=== PATIENT | male | born 1930 | race African-American/Black ===

== ENCOUNTER 2016-10-27 11:12 | Inpatient (IN) | payer MEDICARE ==
[2016-10-27] MEDS ORDERED: ALBUTEROL NEBULIZED 7.5 MG, IPRATROPIUM NEBULIZED 0.5 MG, SODIUM CHLORIDE 0.9% NEBULIZ ... INHALATION ONE ×3 (11:56)
--- NOTE | 2016-10-27 12:18 | ED ---
General Adult HPI - General Chief complaint: Psychiatric Symptoms Stated complaint: PAIN, MENTAL HEALTH Time Seen by Provider: 10/27/16 11:37 Source: patient, RN notes reviewed Mode of arrival: wheelchair Limitations: no limitations - History of Present Illness Initial comments: 86-year-old male presents to the emergency department with a chief complaint of shortness of breath. Patient states he's been short of breath the last few days. Patient states she has a continued cough with sputum production except is able to get out. Patient states he feels a tightness. Patient denies any nausea vomiting with this or fever or chills. Patient states that also been unable to sleep last 5 days. Patient states he does not know why he just cannot sleep. Patient does admit to a history of COPD states he was nonsmoker. Patient states she was concerned due to the continued shortness of breath cough is seen. When talking to the patient's guardian the patient's guardian states that he has been on for about 5 days and she has noticed that his behavior has changed. He has been diagnosed with dementia. Patient has been on Levaquin patiently for the shortness of breath. He denies any suicidal or homicidal ideation at this time. She states that he has a swelling in the legs and she believes this is worsening due to the fact these are elevated and is not going to bed at night. - Related Data Home Medications Medication Instructions Recorded Confirmed Brimonidine Tartrate/Timolol 1 drop BOTH EYES Q12HR 10/08/15 10/27/16 [Combigan 0.2%/0.5% Oph Soln] Diltiazem HCl [Cardizem] 120 mg PO DAILY 10/08/15 10/27/16 Finasteride [Proscar] 5 mg PO DAILY 10/08/15 10/27/16 Furosemide [Lasix] 40 mg PO BID 10/08/15 10/27/16 Tamsulosin [Flomax] 0.4 mg PO DAILY 10/08/15 10/27/16 Travoprost [Travatan Z 0.004%] 1 drop BOTH EYES HS 10/08/15 10/27/16 Vitamin B Complex 1 cap PO DAILY 10/08/15 10/27/16 Albuterol Inhaler [Ventolin Hfa 1 puff INHALATION RT-Q4H PRN 10/09/15 10/27/16 Inhaler] Albuterol Nebulized [Ventolin 2.5 mg INHALATION RT-QID 10/09/15 10/27/16 Nebulized] Fluticasone/Salmeterol [Advair 2 puff INHALATION RT-BID 03/05/16 10/27/16 250-50 Diskus] Ferrous Sulfate [Feosol] 325 mg PO DAILY 04/23/16 10/27/16 predniSONE 20 mg PO DAILY 04/23/16 10/27/16 Docusate [Colace] 100 mg PO BID PRN 05/26/16 10/27/16 Dorzolamide HCl [Trusopt 2%] 1 drop BOTH EYES BID 05/26/16 10/27/16 Lisinopril [Prinivil] 5 mg PO HS 05/26/16 10/27/16 Omeprazole 20 mg PO DAILY PRN 05/26/16 10/27/16 Potassium Chloride [K-Tab ER] 10 meq PO BID 05/26/16 10/27/16 Simvastatin [Zocor] 20 mg PO HS 05/26/16 10/27/16 Pilocarpine HCl [Isopto Carpine 4%] 1 drop BOTH EYES QID 10/27/16 10/27/16 Allergies Allergy/AdvReac Type Severity Reaction Status Date / Time hydrocodone bitartrate AdvReac DELERIUM Verified 10/27/16 13:02 [From [place]] methylprednisolone sodium AdvReac delerium Verified 10/27/16 13:02 succinate [From Solu-Medrol] Review of Systems ROS Statement: Those systems with pertinent positive or pertinent negative responses have been documented in the HPI. ROS Other: All systems not noted in ROS Statement are negative. Past Medical History Past Medical History: Blood Disorder, COPD, Eye Disorder, Hyperlipidemia, Hypertension, Memory Impairment, Renal Disease, Skin Disorder, Vascular Disorder Additional Past Medical History / Comment(s): GLAUCOMA. KELOIDS. ANEMIA. Finished [facility] on 02-27-16. Kidney disease but does not require dialysis. Black stools. History of Any Multi-Drug Resistant Organisms: None Reported Past Surgical History: Joint Replacement, Orthopedic Surgery Additional Past Surgical History / Comment(s): TOTAL RT HIP, LT KNEE. Past Anesthesia/Blood Transfusion Reactions: No Reported Reaction Past Psychological History: Anxiety, Depression Smoking Status: Never smoker Past Alcohol Use History: None Reported Past Drug Use History: None Reported - Past Family History Mother Family Medical History: No Reported History Father Additional Family Medical History / Comment(s): Keloids General Exam - General Exam Comments Initial Comments: General: The patient is awake and alert, in no distress, and does not appear acutely ill. Eye: Pupils are equal, round and reactive to light, extra-ocular movements are intact; there is normal conjunctiva bilaterally. No signs of icterus. Ears, nose, mouth and throat: There are moist mucous membranes and no oral lesions. Neck: The neck is supple, there is no tenderness. Cardiovascular: There is a regular rate and rhythm. No murmur, rub or gallop is appreciated. Respiratory: Lungs are clear to auscultation, respirations are non-labored, breath sounds are equal. Diffuse wheeze,no stridor, rales, or rhonchi. Gastrointestinal: Soft, non-distended, non-tender abdomen without masses or organomegaly noted. There is no rebound or guarding present. No CVA tenderness. Bowel sounds are unremarkable. Back: There is no tenderness to palpation in the midline. There is no obvious deformity. No rashes noted. Musculoskeletal: Normal ROM, no tenderness, There is no pedal edema. Swelling to bilateral lower extremities Sensation intact. Pulses equal bilaterally 2+. Neurological: CN II-XII intact, There are no obvious motor or sensory deficits. Coordination appears grossly intact. Speech is normal. Skin: Skin is warm and dry and no rashes or lesions are noted. Psychiatric: Cooperative, appropriate mood & affect, normal judgment. Limitations: no limitations Course Vital Signs 10/27/16 10/27/16 10/27/16 11:34 12:38 13:15 Temperature 97.6 F Pulse Rate 90 75 84 Respiratory 18 Rate Blood Pressure 175/98 O2 Sat by Pulse 97 Oximetry - Reevaluation(s) Reevaluation #1: 10/27/16 13:52 Patient was reassessed after the breathing treatment patient continues to have diffuse expiratory wheeze and is still only 91 on room air. EKG Findings - EKG Comments: EKG Findings:: normal sinus rhythm 81 bpm, normal axis, no atopy, no S-T depressions or elevations, right bundle-branch block Medical Decision Making - Medical Decision Making 86-year-old male presents with diffuse wheezes throughout the lung examination was shortness of breath and cough. At this time we do not have the injury patient continues to have shortness of breath patient continued to have wheezing and is only 91 on room air. Patient's EKG other laboratory is reviewed. Patient's x-ray does show a possible pneumonia patient is currently being treated with Levaquin out patiently any continues at the wheezing and difficulty breathing. States not given due to patient's ALLERGY. This time we will admit the patient for failed outpatient treatment for pneumonia for COPD exacerbation. Family is concerned about psychiatric care we will also consult psychiatry for the patient. This is discussed with the patient's admitting doctor who does agree to the admission. At this time on the patient and family' s questions have been answered. They're given the plan. - Lab Data Result diagrams: 10/27/16 12:25 10/27/16 12:25 Lab Results 10/27/16 10/27/16 10/27/16 Range/Units 12:25 12:25 12:25 WBC 13.7 H (3.8-10.6) k/uL RBC 3.62 L (4.30-5.90) m/uL Hgb 11.5 L (13.0-17.5) gm/dL Hct 36.2 L (39.0-53.0) % MCV 99.8 (80.0-100.0) fL MCH 31.7 (25.0-35.0) pg MCHC 31.8 (31.0-37.0) g/dL RDW 15.3 (11.5-15.5) % Plt Count 260 (150-450) k/uL Neutrophils % 86 % Lymphocytes % 8 % Monocytes % 5 % Eosinophils % 0 % Basophils % 0 % Neutrophils # 11.8 H (1.3-7.7) k/uL Lymphocytes # 1.1 (1.0-4.8) k/uL Monocytes # 0.7 (0-1.0) k/uL Eosinophils # 0.0 (0-0.7) k/uL Basophils # 0.0 (0-0.2) k/uL Macrocytosis Slight PT (9.0-12.0) sec INR (<1.1) APTT (22.0-30.0) sec Sodium 145 (137-145) mmol/L Potassium 4.5 (3.5-5.1) mmol/L Chloride 105 (98-107) mmol/L Carbon Dioxide 28 (22-30) mmol/L Anion Gap 12 mmol/L BUN 40 H (9-20) mg/dL Creatinine 1.83 H (0.66-1.25) mg/dL Est GFR (MDRD) Af Amer 43 (>60 ml/min/1.73 sqM) Est GFR (MDRD) Non-Af 35 (>60 ml/min/1.73 sqM) Glucose 111 H (74-99) mg/dL Calcium 9.9 (8.4-10.2) mg/dL Magnesium 2.3 (1.6-2.3) mg/dL Total Bilirubin 0.8 (0.2-1.3) mg/dL AST 26 (17-59) U/L ALT 19 L (21-72) U/L Alkaline Phosphatase 44 (38-126) U/L Total Creatine Kinase 52 L (55-170) U/L CK-MB (CK-2) 2.5 H* (0.0-2.4) ng/mL CK-MB (CK-2) Rel Index 4.8 Troponin I 0.033 (0.000-0.034) ng/mL NT-Pro-B Natriuret Pep pg/mL Total Protein 7.0 (6.3-8.2) g/dL Albumin 4.2 (3.5-5.0) g/dL Serum Alcohol <10 mg/dL 10/27/16 10/27/16 Range/Units 12:25 12:25 WBC (3.8-10.6) k/uL RBC (4.30-5.90) m/uL Hgb (13.0-17.5) gm/dL Hct (39.0-53.0) % MCV (80.0-100.0) fL MCH (25.0-35.0) pg MCHC (31.0-37.0) g/dL RDW (11.5-15.5) % Plt Count (150-450) k/uL Neutrophils % % Lymphocytes % % Monocytes % % Eosinophils % % Basophils % % Neutrophils # (1.3-7.7) k/uL Lymphocytes # (1.0-4.8) k/uL Monocytes # (0-1.0) k/uL Eosinophils # (0-0.7) k/uL Basophils # (0-0.2) k/uL Macrocytosis PT 11.0 (9.0-12.0) sec INR 1.1 (<1.1) APTT 20.7 L (22.0-30.0) sec Sodium (137-145) mmol/L Potassium (3.5-5.1) mmol/L Chloride (98-107) mmol/L Carbon Dioxide (22-30) mmol/L Anion Gap mmol/L BUN (9-20) mg/dL Creatinine (0.66-1.25) mg/dL Est GFR (MDRD) Af Amer (>60 ml/min/1.73 sqM) Est GFR (MDRD) Non-Af (>60 ml/min/1.73 sqM) Glucose (74-99) mg/dL Calcium (8.4-10.2) mg/dL Magnesium (1.6-2.3) mg/dL Total Bilirubin (0.2-1.3) mg/dL AST (17-59) U/L ALT (21-72) U/L Alkaline Phosphatase (38-126) U/L Total Creatine Kinase (55-170) U/L CK-MB (CK-2) (0.0-2.4) ng/mL CK-MB (CK-2) Rel Index Troponin I (0.000-0.034) ng/mL NT-Pro-B Natriuret Pep 285 pg/mL Total Protein (6.3-8.2) g/dL Albumin (3.5-5.0) g/dL Serum Alcohol mg/dL - Radiology Data Radiology results: report reviewed, image reviewed Disposition Clinical Impression: Failure of outpatient treatment, Pneumonia involving left lung, COPD exacerbation, Wheezing, Dementia, Restlessness Disposition: ADMITTED IP TO THIS [facility] Condition: Stable Referrals: Medardo Banuelos DO [Primary Care Provider] - 1-2 days Time of Disposition: 13:57 Decision Date: 10/27/16 Decision Time: 13:57
[2016-10-27 12:41] LABS: Basophils % (A) 0 %; CH 32.4; CHCM 32.7; Eosinophils % (A) 0 %; HCT 36.2 % (39.0-53.0); HDW 2.49; HGB 11.5 gm/dL (13.0-17.5); Luc # (Auto) 0.11; Luc % (Auto) 1; Lymphocytes # (A) 1.1 k/uL (1.0-4.8); Lymphocytes % (A) 8 %; MCH 31.7 pg (25.0-35.0); MCHC 31.8 g/dL (31.0-37.0); MCV 99.8 fL (80.0-100.0); Macrocytosis Slight; Mean Platelet Volume 7.8; Monocytes # (A) 0.7 k/uL (0-1.0); Monocytes % (A) 5 %; Neutrophils # (A) 11.8 k/uL (1.3-7.7); Neutrophils % (A) 86 %; RBC 3.62 m/uL (4.30-5.90); RDW 15.3 % (11.5-15.5); WBC 13.7 k/uL (3.8-10.6); WBC (Perox) 14.43
[2016-10-27 12:56] LABS: INR 1.1 (<1.1)
[2016-10-27 12:58] LABS: ALT 19 U/L (21-72); AST 26 U/L (17-59); Alcohol <10 mg/dL; Alkaline Phosphatase 44 U/L (38-126); Anion Gap 12 mmol/L; Blood Urea Nitrogen 40 mg/dL (9-20); Calcium 9.9 mg/dL (8.4-10.2); Carbon Dioxide 28 mmol/L (22-30); Chloride 105 mmol/L (98-107); Glucose 111 mg/dL (74-99); Magnesium 2.3 mg/dL (1.6-2.3); Non-African American GFR(MDRD) 35 (>60 ml/min/1.73 sqM); Potassium 4.5 mmol/L (3.5-5.1); Sodium 145 mmol/L (137-145); Total Bilirubin 0.8 mg/dL (0.2-1.3)
[2016-10-27 13:09] LABS: Partial Thromboplastin Time 20.7 sec (22.0-30.0)
[2016-10-27 13:39] LABS: Troponin I 0.033 ng/mL (0.000-0.034)
--- NOTE | 2016-10-27 13:41 | XR ---
EXAMINATION TYPE: XR chest 2V DATE OF EXAM: 10/27/2016 1:27 PM COMPARISON: Prior chest x-ray May 26, 2016. Prior chest CT March 06, 2015. HISTORY: Chest pain today, history of COPD TECHNIQUE: Frontal and lateral views of the chest are obtained. FINDINGS: There is chronic opacity left lower lung silhouetting heart border felt to correspond to p rominent pericardial fat pad though some silhouetting of left hemidiaphragm is now present suggesting additional basilar atelectasis and/or infiltrate. Masslike opacity right lung base correlates to irr egular scarring on prior CT. No large pleural effusion or pneumothorax is seen bilaterally The cardia c silhouette size remains mildly prominent but stable. The osseous structures are intact. IMPRESSION: Cannot exclude developing left basilar infiltrate and/or atelectasis. New finding from p rior studies.
[2016-10-27 13:43] LABS: Creatine Kinase MB 2.5 ng/mL (0.0-2.4)
[2016-10-27] MEDS ORDERED: ACETAMINOPHEN TAB 500 MG TAB PO STA (13:52)
[2016-10-27] MEDS ORDERED: PNEUMONIA PROTOCOL UTILIZED 1 EACH MISC PO PRN (13:59)
[2016-10-27] MEDS ORDERED: PANTOPRAZOLE 40 MG TABLET PO PRN (14:03)
[2016-10-27] MEDS ORDERED: predniSONE 20 MG TAB PO STA (14:04)
[2016-10-27] MEDS ORDERED: PIPERACILLIN-TAZOBACTAM 3.375 GM in DEXTROSE/WATER 1 50ML.BAG IVPB STA (14:04)
[2016-10-27 14:13] LABS: Appearance,Urine Clear (Clear); Bacteria,Urine Rare /hpf; Bilirubin,Urine Negative (Negative); Glucose,Urine (UA) Negative (Negative); Ketones,Urine Negative (Negative); Leukocyte Esterase,Urine Small (Negative); Nitrite,Urine Negative (Negative); PH, Urine 5.5 (5.0-8.0); Particle Count 792; Protein,Urine Trace (Negative); Specific Gravity,Urine 1.014 (1.001-1.035); Squamous Epithelial Cell,Urine <1 /hpf (0-4); UA Billing (MACRO vs. MICRO) MICRO; Urobilinogen,Urine <2.0 mg/dL (<2.0); WBC,Urine 7 /hpf (0-5)
[2016-10-27] MEDS: SODIUM CHLORIDE 0.9% 1,000 ML IV SCH (14:15)
[2016-10-27] MEDS: IBUPROFEN 600 MG TAB PO STA (16:39)
[2016-10-27] MEDS: FUROSEMIDE 40 MG TAB PO SCH (17:59)
[2016-10-27] MEDS ORDERED: PILOCARPINE HCL BOTH EYES SCH (18:00)
[2016-10-27] MEDS: SYMBICORT 80-4.5 MCG INHALER INHALATION SCH (19:58)
[2016-10-27] MEDS: IPRATROPIUM-ALBUTEROL 3 ML NEB INHALATION PRN (19:58)
[2016-10-27] MEDS: LISINOPRIL 5 MG TAB PO SCH (20:28)
[2016-10-27] MEDS: ATORVASTATIN 10 MG TAB PO SCH (20:28)
[2016-10-27] MEDS: POTASSIUM CHLORIDE ER 10 MEQ TAB.ER.PRT PO SCH (20:28)
[2016-10-27] MEDS: DORZOLAMIDE HCL 2% DROPS 10 ML BTL BOTH EYES SCH (20:29)
[2016-10-27] MEDS: LATANOPROST 0.005% OPHTH DROPS 2.5 ML BTL BOTH EYES SCH (20:29)
[2016-10-27] MEDS: TIMOLOL 0.5% OPHTH DROPS 5 ML BTL BOTH EYES SCH (20:29)
[2016-10-27] MEDS: BRIMONIDINE TARTRATE 0.2% DROPS 5 ML BTL BOTH EYES SCH (20:29)
[2016-10-27] MEDS: PIPERACILLIN-TAZOBACTAM 3.375 GM in DEXTROSE/WATER 1 50ML.BAG IVPB SCH (23:06)
[2016-10-28] MEDS: IPRATROPIUM-ALBUTEROL 3 ML NEB INHALATION PRN ×3 (03:09→17:16)
[2016-10-28] MEDS: SODIUM CHLORIDE 0.9% 1,000 ML IV SCH ×2 (04:33→21:20)
[2016-10-28] MEDS: DILTIAZEM CD 120 MG CAP.ER.24H PO SCH (07:37)
[2016-10-28] MEDS: TAMSULOSIN 0.4 MG CAP.ER.24H PO SCH (07:37)
[2016-10-28] MEDS: SYMBICORT 80-4.5 MCG INHALER INHALATION SCH ×2 (07:37→20:51)
[2016-10-28] MEDS: predniSONE 20 MG TAB PO SCH (07:37)
[2016-10-28] MEDS: BRIMONIDINE TARTRATE 0.2% DROPS 5 ML BTL BOTH EYES SCH ×2 (07:38→20:04)
[2016-10-28] MEDS: FINASTERIDE 5 MG TAB PO SCH (07:38)
[2016-10-28] MEDS: FERROUS SULFATE 325 MG TAB PO SCH (07:38)
[2016-10-28] MEDS: POTASSIUM CHLORIDE ER 10 MEQ TAB.ER.PRT PO SCH ×2 (07:38→20:04)
[2016-10-28] MEDS: TIMOLOL 0.5% OPHTH DROPS 5 ML BTL BOTH EYES SCH ×2 (07:38→20:05)
[2016-10-28] MEDS: FUROSEMIDE 40 MG TAB PO SCH ×2 (07:38→15:42)
[2016-10-28] MEDS: DORZOLAMIDE HCL 2% DROPS 10 ML BTL BOTH EYES SCH ×2 (07:38→20:05)
--- NOTE | 2016-10-28 07:45 | XR ---
EXAMINATION TYPE: XR chest 2V DATE OF EXAM: 10/28/2016 7:29 AM HISTORY: pneumonia. REFERENCE: Previous study dated 10/27/2016. FINDINGS: The lungs are overinflated. The heart is mildly enlarged. There is left basilar airspace di sease. Aeration at the left lung base has improved however. There is a small left effusion. IMPRESSION: 1. COPD. 2. MILD CARDIOMEGALY. 3. IMPROVING LEFT BASILAR AIRSPACE DISEASE. 4. SMALL LEFT-SIDED EFFUSION.
[2016-10-28] MEDS: PIPERACILLIN-TAZOBACTAM 3.375 GM in DEXTROSE/WATER 1 50ML.BAG IVPB SCH ×3 (07:49→23:24)
[2016-10-28] MEDS: IBUPROFEN 600 MG TAB PO STA (07:58)
[2016-10-28] MEDS: DOCUSATE 100 MG CAP PO PRN ×2 (08:22→21:22)
[2016-10-28 09:48] LABS: Basophils % (A) 0 %; CH 31.7; CHCM 32.2; Eosinophils % (A) 0 %; HCT 31.7 % (39.0-53.0); HDW 2.39; HGB 10.2 gm/dL (13.0-17.5); Luc # (Auto) 0.08; Luc % (Auto) 1; Lymphocytes # (A) 0.7 k/uL (1.0-4.8); Lymphocytes % (A) 6 %; MCH 31.9 pg (25.0-35.0); MCHC 32.3 g/dL (31.0-37.0); MCV 98.7 fL (80.0-100.0); Mean Platelet Volume 6.8; Monocytes # (A) 0.6 k/uL (0-1.0); Monocytes % (A) 5 %; Neutrophils # (A) 10.1 k/uL (1.3-7.7); Neutrophils % (A) 88 %; RBC 3.21 m/uL (4.30-5.90); RDW 14.9 % (11.5-15.5); WBC 11.5 k/uL (3.8-10.6); WBC (Perox) 12.44
[2016-10-28 09:51] LABS: Potassium 4.2 mmol/L (3.5-5.1)
--- NOTE | 2016-10-28 11:46 | XR ---
2 view abdomen HISTORY: Abdominal pain 2 views of the abdomen on 3 images correlated to prior exam May, chest x-ray same date Lung bases show a similar appearance and a partially obscured, possible airspace disease left lower l obe. Suspect heart may be enlarged. There is no bowel obstruction or pneumoperitoneum evident. Postop change noted to the right hip. Degenerative disc changes in the visualized spine. Vascular calcifica tions present within the pelvis. There is a spinal curvature. IMPRESSION: Correlate for left lower lobe pneumonia, cardiomegaly.
[2016-10-28 11:58] LABS: Amylase 146 U/L (30-110)
--- NOTE | 2016-10-28 12:14 | P.HPIM ---
History of Present Illness H&P Date: 10/28/16 Chief Complaint: Shortness of breath Patient is an 86-year-old male, patient of Dr. Banuelos in the outpatient setting, with complex medical history noted below significant for dyslipidemia, hypertension, chronic renal failure stage III, pancreatitis, anemia of chronic disease, COPD, gout, glaucoma, BPH, hypertension, chronic pain syndrome, constipation, keloids, and dementia. Patient presented to the emergency department with chief complaint of shortness of breath and nonproductive cough associated with chest tightness. Apparently patient had been treated in the outpatient setting with Levaquin. According to chart, patient was having a difficult time sleeping for approximately 5 days prior to admission and her guardian, patient's behavior had changed. Patient was also noted to have worsening swelling of his bilateral lower extremities. Patient reports that he was experiencing abdominal pain for the last 3 weeks prior to admission associated with abdominal bloating. Patient states he is been leaking urine and experiencing some dysuria. Patient denies nausea orvomiting. Patient reports chronic numbness to his fingers and toes. Patient reports his last bowel movement was yesterday reported as small and hard. Chest x-ray on admission with evidence of left lower lobe pneumonia. Repeat chest x-ray from today with evidence of COPD; mild cardiomegaly; improved left lung base pneumonia; and small left-sided effusion. EKG on admission shows normal sinus rhythm with right bundle branch block. Patient was admitted to the medical floor with consult for with consult to Dr. Cisse for pulmonary service and Dr. Morrissey for psychiatric service. Review of Systems Constitutional: Reports chills Cardiovascular: Reports leg edema, Reports shortness of breath, Denies chest pain (Chest tightness especially when coughing) Respiratory: Reports cough, Reports respiratory infections, Reports wheezing Gastrointestinal: Reports abdominal pain, Reports bloating, Reports constipation , Denies hematemesis, Denies hematochezia, Denies melena, Denies nausea, Denies vomiting Genitourinary: Reports dysuria, Reports incontinence, Reports urinary frequency , Denies hematuria Musculoskeletal: Reports gait dysfunction (Patient uses walker and cane), Reports low back pain, Denies arm numbness/tingling Musculoskeletal: right: hip pain, bilateral: ankle swelling Integumentary: Reports lesions (Keloids) Neurological: Reports memory loss Psychiatric: Reports insomnia Past Medical History Past Medical History: Blood Disorder, COPD, Eye Disorder, Hyperlipidemia, Hypertension, Memory Impairment, Renal Disease, Skin Disorder, Vascular Disorder Additional Past Medical History / Comment(s): GLAUCOMA. KELOIDS. ANEMIA. Kidney disease but does not require dialysis. Black stools. History of Any Multi-Drug Resistant Organisms: None Reported Past Surgical History: Joint Replacement, Orthopedic Surgery Additional Past Surgical History / Comment(s): TOTAL RT HIP, LT KNEE. Past Anesthesia/Blood Transfusion Reactions: No Reported Reaction Past Psychological History: Anxiety, Depression Smoking Status: Never smoker Past Alcohol Use History: None Reported Past Drug Use History: None Reported - Past Family History Mother Family Medical History: No Reported History Father Additional Family Medical History / Comment(s): Keloids Medications and Allergies Home Medications Medication Instructions Recorded Confirmed Type Brimonidine Tartrate/Timolol 1 drop BOTH EYES Q12HR 10/08/15 10/27/16 History [Combigan 0.2%/0.5% Ophth Soln] Diltiazem HCl [Cardizem] 120 mg PO DAILY 10/08/15 10/27/16 History Finasteride [Proscar] 5 mg PO DAILY 10/08/15 10/27/16 History Furosemide [Lasix] 40 mg PO BID 10/08/15 10/27/16 History Tamsulosin [Flomax] 0.4 mg PO DAILY 10/08/15 10/27/16 History Travoprost [Travatan Z 0.004%] 1 drop BOTH EYES HS 10/08/15 10/27/16 History Vitamin B Complex 1 cap PO DAILY 10/08/15 10/27/16 History Albuterol Inhaler [Ventolin Hfa 1 puff INHALATION RT-Q4H PRN 10/09/15 10/27/16 History Inhaler] Albuterol Nebulized [Ventolin 2.5 mg INHALATION RT-QID 10/09/15 10/27/16 History Nebulized] Fluticasone/Salmeterol [Advair 2 puff INHALATION RT-BID 03/05/16 10/27/16 History 250-50 Diskus] Ferrous Sulfate [Feosol] 325 mg PO DAILY 04/23/16 10/27/16 History predniSONE 20 mg PO DAILY 04/23/16 10/27/16 History Docusate [Colace] 100 mg PO BID PRN 05/26/16 10/27/16 History Dorzolamide HCl [Trusopt 2%] 1 drop BOTH EYES BID 05/26/16 10/27/16 History Lisinopril [Prinivil] 5 mg PO HS 05/26/16 10/27/16 History Omeprazole 20 mg PO DAILY PRN 05/26/16 10/27/16 History Potassium Chloride [K-Tab ER] 10 meq PO BID 05/26/16 10/27/16 History Simvastatin [Zocor] 20 mg PO HS 05/26/16 10/27/16 History Pilocarpine HCl [Isopto Carpine 4%] 1 drop BOTH EYES QID 10/27/16 10/27/16 History Allergies Allergy/AdvReac Type Severity Reaction Status Date / Time hydrocodone bitartrate AdvReac DELERIUM Verified 10/27/16 13:02 [From [place]] methylprednisolone sodium AdvReac delerium Verified 10/27/16 13:02 succinate [From Solu-Medrol] Physical Exam Vitals: Vital Signs Temp Pulse Pulse Resp BP BP Pulse Ox 10/28/16 09:38 133/72 10/28/16 08:00 18 10/28/16 07:47 84 10/28/16 07:39 80 10/28/16 07:00 98.3 F 83 18 188/90 97 10/28/16 03:18 84 10/28/16 03:09 88 10/27/16 23:00 98.4 F 83 16 138/84 95 10/27/16 20:09 80 10/27/16 20:00 18 10/27/16 19:58 78 10/27/16 18:46 97 18 96 10/27/16 17:18 96.5 F L 97 18 139/85 96 10/27/16 16:42 97.0 F L 99 17 175/85 93 L 10/27/16 15:42 102 H 17 173/84 97 Intake and Output 10/27/16 10/28/16 10/28/16 22:59 06:59 14:59 Output Total 400 875 300 Balance -400 -845 -300 Output: Urine 400 875 300 Other: Voiding Method Urinal Urinal Incontinent # Voids 1 1 Weight 78.018 kg 78.698 kg GENERAL: Pt awake and alert, well-appearing, well-nourished, and in no acute distress. HEAD: Atraumatic, normocephalic. EYES: Pupils equal and round. Sclera anicteric, conjunctiva are normal. ENT: Oropharynx clear without exudates. Moist mucous membranes. NECK:Supple without lymphadenopathy or JVD. LUNGS: Breath sounds diminished with faint expiratory wheezing. HEART: Heart S1, S2, no S3 or S4. Regular rate and rhythm. No murmurs, rubs or gallops. ABDOMEN: Soft, mild left upper quadrant tenderness, distended, hyperactive bowel sounds. No guarding, no rebound. EXTREMITIES: Palpable peripheral pulses. 1+ edema to bilateral lower extremities. No calf tenderness. NEUROLOGICAL: Pt oriented x 3. No focal deficits. Strength and sensation grossly intact. PSYCH: Normal mood, normal affect. SKIN: Warm, dry and intact. Results CBC & Chem 7: 10/28/16 09:00 10/28/16 09:00 Labs: Abnormal Lab Results - Last 24 Hours (Table) 10/28/16 10/28/16 Range/Units 09:00 09:00 WBC 11.5 H (3.8-10.6) k/uL RBC 3.21 L (4.30-5.90) m/uL Hgb 10.2 L (13.0-17.5) gm/dL Hct 31.7 L (39.0-53.0) % Neutrophils # 10.1 H (1.3-7.7) k/uL Lymphocytes # 0.7 L (1.0-4.8) k/uL BUN 36 H (9-20) mg/dL Creatinine 1.75 H (0.66-1.25) mg/dL Glucose 156 H (74-99) mg/dL Chest x-ray: report reviewed Thrombosis Risk Factor Assmnt - DVT/VTE Prophylaxis DVT/VTE Prophylaxis: Pharmacologic Prophylaxis ordered, Mechanical Prophylaxis ordered - Choose All That Apply Each Factor Represents 1 point: Heart failure (<1month), Swollen legs (current) Each Risk Factor Represents 3 Points: Age 75 years or older Thrombosis Risk Factor Assessment Total Risk Factor Score: 5 Thrombosis Risk Factor Assessment Level: High Risk Assessment and Plan Plan: Impression and plan: 1. Left lower lobe pneumonia, present on admission, failed outpatient treatment. Pulmonary service on consult, recommendations pending. Continue IV antibiotics in the form of Zosyn, nebulized updraft treatments, and IV hydration. Continue supplemental oxygen to keep saturation greater than 92%. Await result of sputum culture. 2. Exacerbation of COPD. Continue nebulized updraft treatments, continue Symbicort, continue prednisone, continue supplemental oxygen. 3. Chronic diastolic heart failure. Last echocardiogram with preserved ventricular systolic function with an EF between 55-60%. I Continue Lasix. 4. Anemia of chronic disease, chronic kidney disease and iron deficiency. Continue ferrous sulfate. 5. Chronic renal failure, stage III. 6. Dyslipidemia. Continue Lipitor. 7. Urinary incontinence with urinalysis positive for small amount of leukocyte esterase and WBC. Will obtain urine culture. Patient is currently on Zosyn which will cover possible urinary tract infection. 8. Random elevated blood sugar. Suspect secondary to steroids. Will check blood sugars before meals at bedtime and cover with Humalog sliding scale. 9. Abdominal pain with bloating. Will check amylase and lipase. Obtain abdominal x-ray. 10. Hypertension. Continue lisinopril. 11. BPH. Continue Flomax and Proscar. 12. Glaucoma. Continue eyedrops. 13. History of gout. 14. History of constipation. Continue Colace. 15. History of anxiety and depression. 16. History of recent insomnia and possible manic behavior. Consult has been requested for psychiatry service, recommendations pending. 17. History of dementia. 18. Dyslipidemia. Continue Lipitor. 19. History of pancreatitis. 20. Gait dysfunction. Maintain fall precautions. Consult PT OT. 21. DVT prophylaxis. Continue antiembolism hose knee-high and subcu heparin. 22. GI prophylaxis. Continue Protonix. 23. Repeat CBC, BMP in a.m. The above impression and plan have been discussed and directed by Dr. Banuelos. Iliana HUERTA acting as scribe for Dr. Banuelos.
[2016-10-28 13:23] LABS: Hemoglobin A1C 5.8 % (4.2-6.1)
[2016-10-28] MEDS: INSULIN LISPRO (humaLOG) 300 UNIT/3 ML VIAL SQ SCH ×3 (13:32→21:21)
[2016-10-28] MEDS: B COMPLEX-VIT C-VIT E-ZINC 1 EACH TAB PO SCH (13:32)
--- NOTE | 2016-10-28 15:17 | P.CN ---
Psychiatric Consult - . Consult date: 10/28/16 Consult:: IDENTIFYING DATA: Mr. Mesa is a 86-year-old -English male who has multiple medical problems. We conducted the interview and his medical room. The environment was noisy and busy. HISTORY OF PRESENT ILLNESS: He presented to medicine service 10/27/2016 with complaints of increasing shortness of breath. He had been treated by his physician for community acquired pneumonia. Medicine service consulted psychiatry for evaluation of dementia. I reviewed the medical record and interviewed Mr. Mesa. He was able to explain the reason for his admission i.e. that he is becoming short of breath and a doctor told him that he has pneumonia. He admitted that he is sometimes "forgetful" but denied having problems with caring for himself. He denied feeling depressed or having thoughts of or suicide. He denied anxiety or symptoms suggestive of panic attack. He denied the use of alcohol or drugs; he described himself as a nondrinker throughout his entire life. PAST PSYCHIATRIC HISTORY: He denied psychiatric hospitalizations. 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 SUBSTANCE USE HISTORY: She does not use tobacco products. He does not drink and denied that he has ever used alcohol or drugs. FAMILY PSYCHIATRIC HISTORY: He is unaware of family history of mental illness. SOCIAL HISTORY: He was born in the [facility] and raised by his parents. He was for 60 years until his in 2013. He had 4 children; 2 sons and 2 daughters. One daughter and one son are . He retired from the [employer] where he worked for 25 years in the [employer] department. He lives alone in [facility]. MENTAL STATUS EXAM: He presented as a casually groomed pleasant 86-year-old male who is laying comfortably in his bed. He coughed intermittently during the interview. He maintained eye contact and attended to the interview. He was easily distracted by the noise and activity in his room. He had no distinguishing features or prominent physical abnormalities. He had a bright facial expression. He was alert and oriented to person, place and time. He showed no abnormality of psychomotor activity. I did not evaluate his gait. His speech was spontaneous with normal rate, rhythm and volume. He had no articulation difficulties. He denied suicidal ideation or wishes. He denied homicidal ideation. He denied depressive cognitions such as hopelessness , helplessness and worthlessness. He denied this obsessions or compulsive behaviors. He did not express ideas reference or paranoid ideation. His thinking was abstract. Associations were coherent and logical. He denied hallucinations and did not appear to responding to internal stimuli. We completed the [employer] memory and concentration test. His total weoghted error score was 10; a total weighted error score greater than 10 is consistent with a dementia. He knew the month and the year. He was able to repeat the memory phrase "Sarmad Leo, [address] [place] [address].". He estimated the time of day correctly within 1 hour the actual time. He counted backwards from 20. He made several errors when he attempted to name the months of the year in reverse order. He was frequently distracted by the noises in the environment. He remembered 3 elements of the memory phrase. IMPRESSIONS: He is an elderly gentleman with multiple medical problems and presented to unit with incomplete response to community acquired pneumonia. He denied a history of mental illness and denied current psychiatric symptoms or problems. His performance on formal mental status testing suggest memory impairment but his overall performance is not severe enough to be consistent with a dementia. Note that the testing environment was suboptimal and he was distracted by the noise and activity of his room. PLAN: Perform sequential memory testing no more frequent than 2-3 times per year and if the pattern shows increasing cognitive difficulties then a diagnosis of dementia may be warranted. Otherwise, there is no indication for psychiatric treatment at this time. Thank for the consult. 10/28/16 14:57
--- NOTE | 2016-10-28 15:22 | P.CNPUL ---
History of Present Illness Consult date: 10/28/16 Requesting physician: Medardo Banuelos Reason for consult: COPD Chief complaint: Shortness of breath History of present illness: This is a very pleasant 86-year-old gentleman who follows with Dr. Banuelos as his primary care physician. He has a history of hyperlipidemia, hypertension, memory impairment, renal disease, anemia. He also has a history of chronic obstructive pulmonary disease and follows with our group for the same. He is maintained on Advair and Ventolin in the outpatient setting. He presented here yesterday to the emergency room with complaints of increasing shortness of breath, cough and congestion. His chest x-ray revealed some left basilar infiltrate/atelectasis. There is minimal leukocytosis at 13.7. He is maintaining good O2 saturations in the mid 90s on room air. Afebrile. Creatinine 1.83. He has been initiated on bronchodilators, Symbicort and prednisone. He is on antibiotics in the form of Zosyn. Presently, the patient is awake and alert in no acute distress. He does have a loose nonproductive cough. No chills or night sweats. He states he is already breathing better today as compared to yesterday. Review of Systems 14 point review of system was conducted. All negative other than as mentioned in HPI. Past Medical History Past Medical History: Blood Disorder, COPD, Eye Disorder, Hyperlipidemia, Hypertension, Memory Impairment, Renal Disease, Skin Disorder, Vascular Disorder Additional Past Medical History / Comment(s): GLAUCOMA. KELOIDS. ANEMIA. Kidney disease but does not require dialysis. Black stools. History of Any Multi-Drug Resistant Organisms: None Reported Past Surgical History: Joint Replacement, Orthopedic Surgery Additional Past Surgical History / Comment(s): TOTAL RT HIP, LT KNEE. Past Anesthesia/Blood Transfusion Reactions: No Reported Reaction Past Psychological History: Anxiety, Depression Smoking Status: Never smoker Past Alcohol Use History: None Reported Past Drug Use History: None Reported - Past Family History Mother Family Medical History: No Reported History Father Additional Family Medical History / Comment(s): Keloids Medications and Allergies Home Medications Medication Instructions Recorded Confirmed Type Brimonidine Tartrate/Timolol 1 drop BOTH EYES Q12HR 10/08/15 10/27/16 History [Combigan 0.2%/0.5% Ophth Soln] Diltiazem HCl [Cardizem] 120 mg PO DAILY 10/08/15 10/27/16 History Finasteride [Proscar] 5 mg PO DAILY 10/08/15 10/27/16 History Furosemide [Lasix] 40 mg PO BID 10/08/15 10/27/16 History Tamsulosin [Flomax] 0.4 mg PO DAILY 10/08/15 10/27/16 History Travoprost [Travatan Z 0.004%] 1 drop BOTH EYES HS 10/08/15 10/27/16 History Vitamin B Complex 1 cap PO DAILY 10/08/15 10/27/16 History Albuterol Inhaler [Ventolin Hfa 1 puff INHALATION RT-Q4H PRN 10/09/15 10/27/16 History Inhaler] Albuterol Nebulized [Ventolin 2.5 mg INHALATION RT-QID 10/09/15 10/27/16 History Nebulized] Fluticasone/Salmeterol [Advair 2 puff INHALATION RT-BID 03/05/16 10/27/16 History 250-50 Diskus] Ferrous Sulfate [Feosol] 325 mg PO DAILY 04/23/16 10/27/16 History predniSONE 20 mg PO DAILY 04/23/16 10/27/16 History Docusate [Colace] 100 mg PO BID PRN 05/26/16 10/27/16 History Dorzolamide HCl [Trusopt 2%] 1 drop BOTH EYES BID 05/26/16 10/27/16 History Lisinopril [Prinivil] 5 mg PO HS 05/26/16 10/27/16 History Omeprazole 20 mg PO DAILY PRN 05/26/16 10/27/16 History Potassium Chloride [K-Tab ER] 10 meq PO BID 05/26/16 10/27/16 History Simvastatin [Zocor] 20 mg PO HS 05/26/16 10/27/16 History Pilocarpine HCl [Isopto Carpine 4%] 1 drop BOTH EYES QID 10/27/16 10/27/16 History Allergies Allergy/AdvReac Type Severity Reaction Status Date / Time hydrocodone bitartrate AdvReac DELERIUM Verified 10/27/16 13:02 [From [place]] methylprednisolone sodium AdvReac delerium Verified 10/27/16 13:02 succinate [From Solu-Medrol] Physical Exam Vitals: Vital Signs Temp Pulse Pulse Resp BP BP Pulse Ox 10/28/16 09:38 133/72 10/28/16 08:00 18 10/28/16 07:47 84 10/28/16 07:39 80 10/28/16 07:00 98.3 F 83 18 188/90 97 10/28/16 03:18 84 10/28/16 03:09 88 10/27/16 23:00 98.4 F 83 16 138/84 95 10/27/16 20:09 80 10/27/16 20:00 18 10/27/16 19:58 78 10/27/16 18:46 97 18 96 10/27/16 17:18 96.5 F L 97 18 139/85 96 10/27/16 16:42 97.0 F L 99 17 175/85 93 L 10/27/16 15:42 102 H 17 173/84 97 Intake and Output 10/28/16 10/28/16 10/28/16 06:59 14:59 22:59 Output Total 875 300 Balance -875 -300 Output: Urine 875 300 Other: Voiding Method Urinal # Voids 1 1 Weight 78.698 kg GENERAL EXAM: Alert, active, comfortable in no apparent distress. HEAD: Normocephalic. EYES: Normal reaction of pupils, equal size. NOSE: Clear with pink turbinates. THROAT: No erythema or exudates. NECK: No masses, no JVD. CHEST: No chest wall deformity. LUNGS: Equal air entry with faint end expiratory wheeze. Diminished. CVS: S1 and S2 normal with no audible murmurs, regular rhythm. ABDOMEN: No hepatosplenomegaly, normal bowel sounds, no guarding or rigidity. SPINE: No scoliosis or deformity SKIN: No rashes CENTRAL NERVOUS SYSTEM: No focal deficits, tone is normal in all 4 extremities. Extremities: There is no significant peripheral edema. No clubbing. Peripheral pulses are intact. Results - Laboratory Findings CBC and BMP: 10/28/16 09:00 10/28/16 09:00 PT/INR, D-dimer PT 11.0 sec (9.0-12.0) 10/27/16 12:25 INR 1.1 (<1.1) 10/27/16 12:25 Abnormal lab findings: Abnormal Labs 10/28/16 10/28/1610/28/17 09:00 09:00 09:00 WBC 11.5 H RBC 3.21 L Hgb 10.2 L Hct 31.7 L Neutrophils # 10.1 H Lymphocytes # 0.7 L BUN 36 H Creatinine 1.75 H Glucose 156 H Amylase 146 H - Diagnostic Findings Chest x-ray: image reviewed (Left lower lobe infiltrate/atelectasis) Assessment and Plan Plan: Impression: #1 Acute exacerbation of chronic obstructive pulmonary disease secondary to suspected left lower lobe pneumonia. #2 Acute left lower lobe pneumonia. #3 Acute exacerbation of chronic diastolic congestive heart failure. #4 Anemia of chronic disease. #5 Acute on chronic kidney disease, current creatinine 1.75. #6 Hypertension. #7 Hyperlipidemia. #8 Benign prosthetic hypertrophy. #9 gastroesophageal reflux disease. #10 Memory impairment. Plan: The patient was seen and evaluated by Dr. Cisse. His chest x-ray and labs were reviewed. We'll go ahead and continue with the patient's current medications including bronchodilators, Symbicort, prednisone. We'll continue antibiotics in the form of Zosyn. He is receiving diuretics. He is on heparin for DVT prophylaxis. He is on Protonix for GI prophylaxis. We will increase his activity as tolerated. We'll continue to follow make further recommendations based on his clinical status. Time with Patient: Greater than 30
--- NOTE | 2016-10-28 16:35 | CONS ---
DATE OF CONSULTATION: Mr. Mesa is an 86-year-old gentleman who came to the emergency room with the complaint of shortness of breath. Patient's electronic medical records are reviewed. Laboratory tests and chest x-ray was reviewed. Patient has been short of breath for the last 3 to 4 days, has been having some cough with sputum production. Patient denies any chest pain. Patient gives a history that he probably had heart failure in the past. Patient can walk only short distance. He has been told that he has chronic obstructive pulmonary disease. Patient has a history of hypertension. There is no history of diabetes. Denies any prior history of myocardial infarction. Home medications include Cardizem 120 mg daily, Lasix 40 mg b.i.d., Ventolin inhaler, Advair, Feosol, Prinivil 5 mg daily, Zocor 20 mg daily. Past medical history includes a history of COPD, hypertension, hyperlipidemia, history of dementia, total right hip and left knee surgery, history of anxiety and depression. Physical examination at present reveals an 86-year-old gentleman who is obesely built, does not appear to be in any acute distress. The patient's blood pressure is 133/72 mmHg, respiratory rate 20. Respirations are not labored. Heart rate is 84 per minute. Head/ENT examination is negative. Neck is supple. There is no increase in jugular venous pressure. Both the carotid pulses are felt. There is no bruit. Chest is symmetrical. HEART: The PMI is not felt. First and second heart sounds are normal. Lung examination reveals bilateral rhonchi and wheezes. Abdomen is soft. Liver and spleen are not enlarged. EXTREMITIES: There is trace leg edema. Patient's proBNP level is 285 and creatinine is 1.75. Chest x-ray showed questionable left basilar infiltrate, which is actually improved today. FINAL IMPRESSION: 1. This patient is admitted with cough and shortness of breath most likely due to acute bronchitis. There is no evidence of any significant left ventricular failure. Patient's proBNP level is 285. Chest x-ray does not show any evidence of failure. 2. Hypertension well controlled. 3. Patient has chronic renal failure. RECOMMENDATIONS: We will recommend to continue the current medications and echo and Doppler study will be obtained to assess the left ventricular systolic function.
[2016-10-28 17:09] LABS: Glucose,Whole Blood 149 mg/dL (75-99)
[2016-10-28] MEDS: ATORVASTATIN 10 MG TAB PO SCH (20:04)
[2016-10-28] MEDS: LISINOPRIL 5 MG TAB PO SCH (20:04)
[2016-10-28] MEDS: LATANOPROST 0.005% OPHTH DROPS 2.5 ML BTL BOTH EYES SCH (20:05)
[2016-10-28] MEDS ORDERED: TEMAZEPAM 7.5 MG CAP PO SCH (21:00)
[2016-10-28 21:09] LABS: Glucose,Whole Blood 162 mg/dL (75-99)
[2016-10-28] MEDS: PILOCARPINE 2% OPHTH DROPS 15 ML BTL BOTH EYES SCH (21:21)
[2016-10-28] MEDS: HEPARIN SODIUM,PORCINE 5,000 UNIT/ML 1 ML VIAL SQ SCH (21:21)
[2016-10-28] MEDS: traZODone HCL 100 MG TAB PO SCH (21:22)
[2016-10-29] MEDS: IPRATROPIUM-ALBUTEROL 3 ML NEB INHALATION PRN ×4 (03:15→15:16)
[2016-10-29 06:53] LABS: Glucose,Whole Blood 97 mg/dL (75-99)
[2016-10-29] MEDS: SYMBICORT 80-4.5 MCG INHALER INHALATION SCH ×2 (07:02→19:29)
[2016-10-29] MEDS: INSULIN LISPRO (humaLOG) 300 UNIT/3 ML VIAL SQ SCH ×4 (07:31→22:36)
[2016-10-29 09:49] LABS: Basophils % (A) 0 %; CH 31.8; CHCM 32.1; Eosinophils % (A) 0 %; HCT 33.3 % (39.0-53.0); HDW 2.39; HGB 10.5 gm/dL (13.0-17.5); Luc # (Auto) 0.11; Luc % (Auto) 1; Lymphocytes # (A) 0.8 k/uL (1.0-4.8); Lymphocytes % (A) 7 %; MCH 31.5 pg (25.0-35.0); MCHC 31.7 g/dL (31.0-37.0); MCV 99.5 fL (80.0-100.0); Macrocytosis Slight; Mean Platelet Volume 6.9; Monocytes # (A) 0.7 k/uL (0-1.0); Monocytes % (A) 6 %; Neutrophils % (A) 86 %; RBC 3.34 m/uL (4.30-5.90); RDW 15.2 % (11.5-15.5); WBC 11.7 k/uL (3.8-10.6); WBC (Perox) 12.59
[2016-10-29] MEDS: DORZOLAMIDE HCL 2% DROPS 10 ML BTL BOTH EYES SCH ×3 (10:03→23:38)
[2016-10-29] MEDS: PIPERACILLIN-TAZOBACTAM 3.375 GM in DEXTROSE/WATER 1 50ML.BAG IVPB SCH ×2 (10:03→17:41)
[2016-10-29] MEDS: FERROUS SULFATE 325 MG TAB PO SCH (10:04)
[2016-10-29] MEDS: FUROSEMIDE 40 MG TAB PO SCH ×2 (10:04→17:41)
[2016-10-29] MEDS: FINASTERIDE 5 MG TAB PO SCH (10:04)
[2016-10-29] MEDS: POTASSIUM CHLORIDE ER 10 MEQ TAB.ER.PRT PO SCH ×3 (10:05→23:39)
[2016-10-29] MEDS: DILTIAZEM CD 120 MG CAP.ER.24H PO SCH (10:05)
[2016-10-29] MEDS: TAMSULOSIN 0.4 MG CAP.ER.24H PO SCH (10:05)
[2016-10-29] MEDS: predniSONE 20 MG TAB PO SCH (10:05)
[2016-10-29] MEDS: HEPARIN SODIUM,PORCINE 5,000 UNIT/ML 1 ML VIAL SQ SCH ×3 (10:05→23:38)
[2016-10-29] MEDS: SODIUM CHLORIDE 0.9% 1,000 ML IV SCH ×2 (10:06→22:43)
[2016-10-29] MEDS: BRIMONIDINE TARTRATE 0.2% DROPS 5 ML BTL BOTH EYES SCH ×3 (10:07→23:38)
[2016-10-29] MEDS: PILOCARPINE 2% OPHTH DROPS 15 ML BTL BOTH EYES SCH ×5 (10:09→23:39)
[2016-10-29 10:10] LABS: Calcium 8.7 mg/dL (8.4-10.2); Potassium 3.4 mmol/L (3.5-5.1)
[2016-10-29] MEDS: TIMOLOL 0.5% OPHTH DROPS 5 ML BTL BOTH EYES SCH ×3 (10:11→23:39)
--- NOTE | 2016-10-29 11:41 | ECHOF ---
Referral Reason:chf MEASUREMENTS -------- HEIGHT: 180.3 cm WEIGHT: 78.5 kg BP: 133/72 RVIDd: 3.5 cm (< 3.3) IVSd: 1.3 cm (0.6 - 1.1) LVIDd: 4.1 cm (3.9 - 5.3) LVPWd: 1.3 cm (0.6 - 1.1) IVSs: 2.0 cm LVIDs: 2.6 cm LVPWs: 2.0 cm LAESV Index (A-L): 32.24 ml/m Ao Diam: 3.3 cm (2.0 - 3.7) AV Cusp: 1.7 cm (1.5 - 2.6) LA Diam: 3.1 cm (2.7 - 3.8) MV EXCURSION: 13.449 mm (> 18.000) MV EF SLOPE: 55 mm/s (70 - 150) EPSS: 0.5 cm MV E Preston: 1.08 m/s MV DecT: 216 ms MV A Preston: 1.30 m/s MV E/A Ratio: 0.83 AV maxP.11 mmHg AV meanP.63 mmHg FINDINGS -------- Sinus rhythm. This was a technically adequate study. There is mild concentric left ventricular hypertrophy. Overall left ventricular systolic function is normal with, an EF between 60 - 65 %. Pseudonormal LV filling pattern, consistent with elevated LA pressure. The right ventricle is mildly enlarged. LA is midly dilated 29-33ml/m2. The right atrium is normal in size. Aortic valve is trileaflet and is mildly thickened. There is mild aortic stenosis present. Peak/mean gradient across the Aortic Valve is 20.11mmHg / 11.63mmHg. Mild mitral annular calcification present. There is trace to mild mitral regurgitation. Trace tricuspid regurgitation present. Trace/mild (physiologic) pulmonic regurgitation. The aortic root size is normal. Normal inferior vena cava with normal inspiratory collapse consistent with estimated right atrial pressure of 5 mmHg. Echo free space may represent effusion or a pericardial fat pad. CONCLUSIONS -------- 1. Sinus rhythm. 2. Peak/mean gradient across the Aortic Valve is 20.11mmHg / 11.63mmHg. 3. Mild mitral annular calcification present. 4. There is trace to mild mitral regurgitation. 5. Trace tricuspid regurgitation present. 6. Trace/mild (physiologic) pulmonic regurgitation. 7. The aortic root size is normal. 8. Echo free space may represent effusion or a pericardial fat pad. 9. This was a technically adequate study. 10. There is mild concentric left ventricular hypertrophy. 11. Overall left ventricular systolic function is normal with, an EF between 60 - 65 %. 12. Pseudonormal LV filling pattern, consistent with elevate LA pressure. 13. The right ventricle is mildly enlarged. 14. LA is midly dilated 29-33ml/m2. 15. Aortic valve is trileaflet and is mildly thickened. 16. There is mild aortic stenosis present. LEGAL CLERK: Spring Bueno RDCS
[2016-10-29 12:04] LABS: Glucose,Whole Blood 119 mg/dL (75-99)
[2016-10-29] MEDS: B COMPLEX-VIT C-VIT E-ZINC 1 EACH TAB PO SCH (13:11)
[2016-10-29] MEDS: LISINOPRIL 10 MG TAB PO SCH (13:14)
[2016-10-29] MEDS: amLODIPine 5 MG TAB PO SCH (13:14)
[2016-10-29] MEDS: IBUPROFEN 600 MG TAB PO PRN (13:16)
[2016-10-29] MEDS ORDERED: Potassium Replacement Protocol 1 EACH MISC MISCELLANE PRN (13:30)
--- NOTE | 2016-10-29 13:31 | P.PN ---
Subjective Principal diagnosis: Left lower lobe pneumonia Patient is an 86-year-old male, patient of Dr. Bnauelos in the outpatient setting, with complex medical history noted below significant for dyslipidemia, hypertension, chronic renal failure stage III, pancreatitis, anemia of chronic disease, COPD, gout, glaucoma, BPH, hypertension, chronic pain syndrome, constipation, keloids, and dementia. Patient admitted with evidence of left lower lobe pneumonia, failed outpatient treatment, acute exacerbation of COPD, and acute exacerbation of chronic diastolic congestive heart failure. Patient is being followed by Dr. Cisse for pulmonary service and continues on IV antibiotics, bronchodilators, Symbicort, and prednisone. Patient has also been evaluated by psychiatric service with history of recent behavioral changes per guardian. Upon examination, patient is verbally aggressive and irrational. Patient states he's in another bed than yesterday and everybody is lying to him. Patient reports that his breathing has not improved since yesterday. Patient states he had to lay down this morning and he has breakfast as he was too short of breath to sit at the side of the bed. Denies chills, nausea, vomiting, chest pain, or abdominal pain. Patient is afebrile. Oxygen saturation 99% on 2 L nasal cannula. White count increased slightly to 11.7 from yesterday. Creatinine improved to 1.71. Abdominal x-ray from yesterday with no evidence of bowel obstruction. Echocardiogram shows pseudonormal LV function with an EF between 60-65% consistent with elevated LA pressure. Objective - Vital Signs Vital signs: Vital Signs Temp 96.9 F L 10/29/16 07:00 Pulse 74 10/29/16 11:07 Resp 18 10/29/16 08:00 BP 173/91 10/29/16 07:00 Pulse Ox 99 10/29/16 07:00 Intake & Output 10/28/16 10/29/16 10/29/16 18:59 06:59 18:59 Output Total 300 1300 250 Balance -300 -1300 -250 Weight 78.925 kg Output: Urine 300 1300 250 Other: Voiding Method Urinal Urinal Urinal # Voids 3 2 - Exam GENERAL: Pt awake and alert, well-nourished, and in no acute distress. HEAD: Atraumatic, normocephalic. EYES: Pupils equal and round. Sclera anicteric, conjunctiva are normal. ENT: Moist mucous membranes. NECK:Supple without lymphadenopathy or JVD. LUNGS: Breath sounds diminished with rhonchi with faint expiratory wheezing. HEART: Heart S1, S2, no S3 or S4. Regular rate and rhythm. No murmurs, rubs or gallops. ABDOMEN: Soft, nontender, distended, hyperactive bowel sounds. No guarding, no rebound. EXTREMITIES: Palpable peripheral pulses. 1+ edema to bilateral lower extremities. No calf tenderness. NEUROLOGICAL: Pt oriented x 3. No focal deficits. Strength and sensation grossly intact. PSYCH: Agitated. SKIN: Warm, dry and intact. - Labs CBC & Chem 7: 10/29/16 09:09 10/29/16 09:09 Labs: Abnormal Lab Results - Last 24 Hours (Table) 10/28/16 10/28/16 10/29/16 Range/Units 16:59 21:01 09:09 WBC 11.7 H (3.8-10.6) k/uL RBC 3.34 L (4.30-5.90) m/uL Hgb 10.5 L (13.0-17.5) gm/dL Hct 33.3 L (39.0-53.0) % Neutrophils # 10.0 H (1.3-7.7) k/uL Lymphocytes # 0.8 L (1.0-4.8) k/uL Potassium (3.5-5.1) mmol/L BUN (9-20) mg/dL Creatinine (0.66-1.25) mg/dL Glucose (74-99) mg/dL POC Glucose (mg/dL) 149 H 162 H (75-99) mg/dL 10/29/16 10/29/16 Range/Units 09:09 12:02 WBC (3.8-10.6) k/uL RBC (4.30-5.90) m/uL Hgb (13.0-17.5) gm/dL Hct (39.0-53.0) % Neutrophils # (1.3-7.7) k/uL Lymphocytes # (1.0-4.8) k/uL Potassium 3.4 L (3.5-5.1) mmol/L BUN 36 H (9-20) mg/dL Creatinine 1.71 H (0.66-1.25) mg/dL Glucose 111 H (74-99) mg/dL POC Glucose (mg/dL) 119 H (75-99) mg/dL Microbiology - Last 24 Hours (Table) 10/27/16 15:00 Blood Culture - Preliminary Blood No Growth after 24 hours Assessment and Plan Plan: Impression and plan: 1. Left lower lobe pneumonia, present on admission, failed outpatient treatment. Pulmonary service on consult, recommendations noted. Continue IV antibiotics in the form of Zosyn, nebulized updraft treatments, and IV hydration. Continue supplemental oxygen to keep saturation greater than 92%. Await result of sputum culture. 2. Exacerbation of COPD. Continue nebulized updraft treatments, continue Symbicort, continue prednisone, continue supplemental oxygen. 3. Acute on chronic diastolic heart failure. Echocardiogram with evidence pseudonormal pelvic function with EF of 60-65%. Continue IV Lasix. 4. Anemia of chronic disease, chronic kidney disease and iron deficiency. Continue ferrous sulfate. 5. Chronic renal failure, stage III. 6. Dyslipidemia. Continue Lipitor. 7. Urinary incontinence with urinalysis positive for small amount of leukocyte esterase and WBC. Urine culture uncollected. Patient is currently on Zosyn which will hopefully cover possible urinary tract infection. 8. Random elevated blood sugar, improved. Suspect secondary to steroids. Will check blood sugars before meals at bedtime and cover with Humalog sliding scale. 9. Abdominal pain with bloating, improved. Abdominal x-ray negative for obstruction. 10. Hypertension. Continue lisinopril. 11. BPH. Continue Flomax and Proscar. 12. Glaucoma. Continue eyedrops. 13. History of gout. 14. History of constipation. Continue Colace. 15. History of anxiety and depression. 16. History of recent insomnia and possible manic behavior. Consult has been requested for psychiatry service, recommendations noted. 17. Dyslipidemia. Continue Lipitor. 18. History of pancreatitis. 19. Gait dysfunction. Maintain fall precautions. Consult PT OT. Patient is recommended returned to home with home care upon discharge per physical therapy. 20. DVT prophylaxis. Continue antiembolism hose knee-high and subcu heparin. 21. GI prophylaxis. Continue Protonix. 22. Repeat CBC, BMP in a.m. The above impression and plan have been discussed and directed by Dr. Banuelos. Iliana HUERTA acting as scribe for Dr. Banuelos.
[2016-10-29] MEDS ORDERED: POTASSIUM CHLORIDE 10 MEQ in WATER FOR INJECTION 1 100ML.BAG IVPB ONE (14:00)
--- NOTE | 2016-10-29 15:00 | P.PN ---
Subjective Principal diagnosis: COPD exacerbation This is a very pleasant 86-year-old gentleman who follows with Dr. Banuelos as his primary care physician. He has a history of hyperlipidemia, hypertension, memory impairment, renal disease, anemia. He also has a history of chronic obstructive pulmonary disease and follows with our group for the same. He is maintained on Advair and Ventolin in the outpatient setting. He presented here yesterday to the emergency room with complaints of increasing shortness of breath, cough and congestion. His chest x-ray revealed some left basilar infiltrate/atelectasis. There is minimal leukocytosis at 13.7. He is maintaining good O2 saturations in the mid 90s on room air. Afebrile. Creatinine 1.83. He has been initiated on bronchodilators, Symbicort and prednisone. He is on antibiotics in the form of Zosyn. Presently, the patient is awake and alert in no acute distress. He does have a loose nonproductive cough. No chills or night sweats. The patient is seen again today 10/29/2016 in follow-up on the regular medical floor. He is awake and alert in no acute distress. He is maintaining O2 saturations in the 90s on room air. He is laying quite flat in bed without any complaints. He is dyspneic on minimal exertion however. He is wheezing still but states he is better today as compared to yesterday. Objective - Vital Signs Vital signs: Vital Signs Temp 96.9 F L 10/29/16 07:00 Pulse 74 10/29/16 11:07 Resp 18 10/29/16 08:00 BP 173/91 10/29/16 07:00 Pulse Ox 99 10/29/16 07:00 Intake & Output 10/28/16 10/29/16 10/29/16 18:59 06:59 18:59 Output Total 300 1300 250 Balance -300 -1300 -250 Weight 78.925 kg Output: Urine 300 1300 250 Other: Voiding Method Urinal Urinal Urinal # Voids 3 2 1 - Exam GENERAL EXAM: Alert, active, comfortable in no apparent distress. HEAD: Normocephalic. EYES: Normal reaction of pupils, equal size. NOSE: Clear with pink turbinates. THROAT: No erythema or exudates. NECK: No masses, no JVD. CHEST: No chest wall deformity. LUNGS: Equal air entry with faint end expiratory wheeze. Diminished.. CVS: S1 and S2 normal with no audible murmurs, regular rhythm. ABDOMEN: No hepatosplenomegaly, normal bowel sounds, no guarding or rigidity. SPINE: No scoliosis or deformity SKIN: No rashes CENTRAL NERVOUS SYSTEM: No focal deficits, tone is normal in all 4 extremities. Extremities: There is no peripheral edema. No clubbing. Peripheral pulses are intact. - Labs CBC & Chem 7: 10/29/16 09:09 10/29/16 09:09 Labs: Abnormal Lab Results - Last 24 Hours (Table) 10/28/16 10/28/16 10/29/16 Range/Units 16:59 21:01 09:09 WBC 11.7 H (3.8-10.6) k/uL RBC 3.34 L (4.30-5.90) m/uL Hgb 10.5 L (13.0-17.5) gm/dL Hct 33.3 L (39.0-53.0) % Neutrophils # 10.0 H (1.3-7.7) k/uL Lymphocytes # 0.8 L (1.0-4.8) k/uL Potassium (3.5-5.1) mmol/L BUN (9-20) mg/dL Creatinine (0.66-1.25) mg/dL Glucose (74-99) mg/dL POC Glucose (mg/dL) 149 H 162 H (75-99) mg/dL 10/29/16 10/29/16 Range/Units 09:09 12:02 WBC (3.8-10.6) k/uL RBC (4.30-5.90) m/uL Hgb (13.0-17.5) gm/dL Hct (39.0-53.0) % Neutrophils # (1.3-7.7) k/uL Lymphocytes # (1.0-4.8) k/uL Potassium 3.4 L (3.5-5.1) mmol/L BUN 36 H (9-20) mg/dL Creatinine 1.71 H (0.66-1.25) mg/dL Glucose 111 H (74-99) mg/dL POC Glucose (mg/dL) 119 H (75-99) mg/dL Microbiology - Last 24 Hours (Table) 02/22/17 15:00 Blood Culture - Preliminary Blood No Growth after 24 hours Assessment and Plan Plan: Impression: #1 Acute exacerbation of chronic obstructive pulmonary disease secondary to left lower lobe pneumonia. #2 Acute left lower lobe pneumonia. #3 Acute exacerbation of chronic diastolic congestive heart failure. #4 Anemia of chronic disease. #5 Acute on chronic kidney disease, current creatinine 1.71. #6 Hypertension. #7 Hyperlipidemia. #8 Benign prosthetic hypertrophy. #9 gastroesophageal reflux disease. #10 Memory impairment. Plan: The patient was seen and evaluated by Dr. Cisse. We'll go ahead and continue with the patient's current medications including bronchodilators, Symbicort, prednisone. We'll continue antibiotics in the form of Zosyn. He is receiving diuretics. He is on heparin for DVT prophylaxis. He is on Protonix for GI prophylaxis. We will increase his activity as tolerated. We'll continue to follow make further recommendations based on his clinical status.
--- NOTE | 2016-10-29 16:00 | PN ---
This patient is admitted with cough and shortness of breath. Patient's symptoms are suggestive of acute bronchitis. Patient has a history of hypertension. Blood pressure this morning is 170/90 mmHg. First and second heart sounds are normal. Lung examination reveals a few bilateral rhonchi. Echocardiogram shows evidence of left ventricular hypertrophy with normal left ventricular systolic function. I will increase the dose of lisinopril to 10 mg daily and we will discontinue Cardizem and start the patient on amlodipine 5 mg daily for better control of the blood pressure.
[2016-10-29 17:17] LABS: Glucose,Whole Blood 238 mg/dL (75-99)
[2016-10-29 21:35] LABS: Glucose,Whole Blood 98 mg/dL (75-99)
[2016-10-29] MEDS: ATORVASTATIN 10 MG TAB PO SCH ×2 (22:41→23:38)
[2016-10-29] MEDS: LATANOPROST 0.005% OPHTH DROPS 2.5 ML BTL BOTH EYES SCH ×2 (22:41→23:39)
[2016-10-29] MEDS: traZODone HCL 100 MG TAB PO SCH ×2 (22:42→23:39)
[2016-10-29] MEDS ORDERED: HALOPERIDOL LACTATE 5 MG/ML 1 ML VIAL IM ONE (23:35)
[2016-10-30] MEDS: PIPERACILLIN-TAZOBACTAM 3.375 GM in DEXTROSE/WATER 1 50ML.BAG IVPB SCH ×4 (00:43→23:10)
[2016-10-30 07:37] LABS: Glucose,Whole Blood 145 mg/dL (75-99)
[2016-10-30 08:15] LABS: Basophils % (A) 0 %; CH 31.8; CHCM 32.4; Eosinophils % (A) 0 %; HCT 37.7 % (39.0-53.0); HDW 2.39; HGB 12.1 gm/dL (13.0-17.5); Luc # (Auto) 0.17; Luc % (Auto) 1; Lymphocytes # (A) 0.8 k/uL (1.0-4.8); Lymphocytes % (A) 7 %; MCH 31.6 pg (25.0-35.0); MCHC 32.1 g/dL (31.0-37.0); MCV 98.4 fL (80.0-100.0); Mean Platelet Volume 7.8; Monocytes # (A) 0.9 k/uL (0-1.0); Monocytes % (A) 7 %; Neutrophils # (A) 10.7 k/uL (1.3-7.7); Neutrophils % (A) 85 %; RBC 3.83 m/uL (4.30-5.90); RDW 15.1 % (11.5-15.5); WBC 12.6 k/uL (3.8-10.6)
[2016-10-30 08:35] LABS: Calcium 9.2 mg/dL (8.4-10.2); Potassium 3.4 mmol/L (3.5-5.1)
[2016-10-30] MEDS: SYMBICORT 80-4.5 MCG INHALER INHALATION SCH ×3 (08:36→19:48)
[2016-10-30] MEDS: IPRATROPIUM-ALBUTEROL 3 ML NEB INHALATION PRN ×2 (08:36→13:01)
[2016-10-30] MEDS: FINASTERIDE 5 MG TAB PO SCH (09:11)
[2016-10-30] MEDS: TAMSULOSIN 0.4 MG CAP.ER.24H PO SCH (09:11)
[2016-10-30] MEDS: LISINOPRIL 10 MG TAB PO SCH (09:11)
[2016-10-30] MEDS: POTASSIUM CHLORIDE ER 10 MEQ TAB.ER.PRT PO SCH ×2 (09:11→20:00)
[2016-10-30] MEDS: HEPARIN SODIUM,PORCINE 5,000 UNIT/ML 1 ML VIAL SQ SCH ×2 (09:11→20:00)
[2016-10-30] MEDS: FERROUS SULFATE 325 MG TAB PO SCH (09:11)
[2016-10-30] MEDS: FUROSEMIDE 40 MG TAB PO SCH (09:12)
[2016-10-30] MEDS: INSULIN LISPRO (humaLOG) 300 UNIT/3 ML VIAL SQ SCH ×4 (09:12→21:00)
[2016-10-30] MEDS: amLODIPine 5 MG TAB PO SCH (09:12)
[2016-10-30] MEDS: predniSONE 20 MG TAB PO SCH (09:12)
[2016-10-30] MEDS: DORZOLAMIDE HCL 2% DROPS 10 ML BTL BOTH EYES SCH ×2 (09:13→20:00)
[2016-10-30] MEDS: BRIMONIDINE TARTRATE 0.2% DROPS 5 ML BTL BOTH EYES SCH ×2 (09:13→20:01)
[2016-10-30] MEDS: TIMOLOL 0.5% OPHTH DROPS 5 ML BTL BOTH EYES SCH ×2 (09:14→20:00)
[2016-10-30] MEDS: PILOCARPINE 2% OPHTH DROPS 15 ML BTL BOTH EYES SCH ×4 (09:14→20:00)
[2016-10-30] MEDS: IBUPROFEN 600 MG TAB PO PRN (09:30)
[2016-10-30] MEDS ORDERED: FAMOTIDINE 20 MG TAB PO ONE (10:45)
[2016-10-30] MEDS ORDERED: Potassium Replacement Protocol 1 EACH MISC MISCELLANE PRN (11:10)
[2016-10-30 11:55] LABS: Glucose,Whole Blood 74 mg/dL (75-99)
[2016-10-30] MEDS ORDERED: POTASSIUM CHLORIDE ER 20 MEQ TAB.ER PO SCH (12:00)
--- NOTE | 2016-10-30 12:06 | PN ---
Patient is an 86-year-old gentleman admitted for left lower lobe pneumonia and COPD exacerbation. Patient still has significant expiratory wheezing at this point of time. Patient is on IV antibiotics in the form of Zosyn. Sputum cultures are not much ( ) at this point of time. It did show a few gram-positive cocci, probably patient should be okay with Rocephin. Will narrow down the spectrum of antibiotics tomorrow after reviewing his whole chart. The other issues being patient apparently has chronic diastolic dysfunction with normal ejection fraction and patient is on 40 oral b.i.d. of Lasix. Patient here is getting both Lasix as well as IV normal saline. IV normal saline was discontinued and Lasix will be cut down to 40 mg because of excessive diuresis. Patient is fairly hypovolemic at this point of time. Patient has worsening renal function with creatinine 1.77. His baseline creatinine is around 1.4 and ibuprofen will be discontinued. We can use low-dose tramadol if he has issues with pain. Patient was agitated last night, did receive Haldol, was started on Haldol on p.r.n. basis. Can either use Haldol or Seroquel on p.r.n. basis for agitation episodes. Avoid any benzodiazepines, barbiturates. Continue with systemic steroids. REVIEW OF SYSTEMS: CARDIOVASCULAR: No chest pain, no orthopnea, no PND, no palpitations. PULMONARY: Denied any shortness of breath. No cough or hemoptysis. GASTROINTESTINAL: No diarrhea, nausea or vomiting. No abdominal pain. Normoactive bowel sounds. NEUROLOGIC: No headaches, no weakness, no numbness. Medications were reviewed. PHYSICAL EXAMINATION: VITAL SIGNS: Temperature is 97.2, pulse of 76, respiratory of 20, blood pressure is 157/104, saturating at 93% on room air. GENERAL: The patient is alert and oriented x3, not in any acute distress. Well developed, well nourished. HEENT: Pupils are round and equally reacting to light. EOMI. No scleral icterus. No conjunctival pallor. Normocephalic, atraumatic. No pharyngeal erythema. No thyromegaly. CARDIOVASCULAR: S1 and S2 present. No murmurs, rubs, or gallops. RESPIRATORY EXAMINATION: Significant decreased in air entry into bilateral lung olson. Significant expiratory wheezing was appreciated. No rhonchi or crackles were appreciated. I did not hear clear-cut bronchophony or egophony. ABDOMEN: Soft, nontender, nondistended, normoactive bowel sounds. No palpable organomegaly. MUSCULOSKELETAL: No joint swelling or deformity. EXTREMITIES: No cyanosis, clubbing, or pedal edema. NEUROLOGICAL: Gross neurological examination did not reveal any focal deficits. SKIN: No rashes. LABORATORY DATA: Significant ones, creatinine is 1.77, fairly stable compared to day before. Patient's BUN is elevated to 41, can be from systemic steroids. ASSESSMENT AND PLAN: 1. Left lower lobe pneumonia, failed outpatient therapy. Patient is on Zosyn, which will be continued. 2. Chronic obstructive pulmonary disease exacerbation and acute hypercapnic respiratory failure secondary to chronic obstructive pulmonary disease exacerbation. Patient is still wheezing quite a bit. 3. Acute on chronic diastolic dysfunction. Patient is on the hypovolemic side at this point of time. We will cut down the Lasix and discontinue IV fluids. 4. Anemia of chronic disease and anemia of chronic kidney disease. 5. Chronic kidney disease stage III. 6. Acute renal failure secondary to prerenal azotemia from excessive diuresis. 7. Hypertension. 8. Benign prostatic hypertrophy. 9. Possible dementia. 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 10. Dyslipidemia. 11. Patient will need both gastrointestinal and deep venous thrombosis prophylaxis at this point of time. We will continue the present medications with above medication changes as mentioned in the interval history.
[2016-10-30] MEDS: B COMPLEX-VIT C-VIT E-ZINC 1 EACH TAB PO SCH (13:01)
[2016-10-30 17:13] LABS: Glucose,Whole Blood 210 mg/dL (75-99)
[2016-10-30] MEDS: ATORVASTATIN 10 MG TAB PO SCH (20:00)
[2016-10-30] MEDS: traZODone HCL 100 MG TAB PO SCH (20:00)
[2016-10-30] MEDS: FAMOTIDINE 20 MG TAB PO SCH (20:00)
[2016-10-30] MEDS: QUEtiapine 25 MG TAB PO PRN (20:00)
[2016-10-30] MEDS: LATANOPROST 0.005% OPHTH DROPS 2.5 ML BTL BOTH EYES SCH (20:01)
--- NOTE | 2016-10-30 20:34 | P.PN ---
Subjective COPD exacerbation This is a very pleasant 86-year-old gentleman who follows with Dr. Banuelos as his primary care physician. He has a history of hyperlipidemia, hypertension, memory impairment, renal disease, anemia. He also has a history of chronic obstructive pulmonary disease and follows with our group for the same. He is maintained on Advair and Ventolin in the outpatient setting. He presented here yesterday to the emergency room with complaints of increasing shortness of breath, cough and congestion. His chest x-ray revealed some left basilar infiltrate/atelectasis. There is minimal leukocytosis at 13.7. He is maintaining good O2 saturations in the mid 90s on room air. Afebrile. Creatinine 1.83. He has been initiated on bronchodilators, Symbicort and prednisone. He is on antibiotics in the form of Zosyn. Presently, the patient is awake and alert in no acute distress. He does have a loose nonproductive cough. No chills or night sweats. The patient is seen again today 10/29/2016 in follow-up on the regular medical floor. He is awake and alert in no acute distress. He is maintaining O2 saturations in the 90s on room air. He is laying quite flat in bed without any complaints. He is dyspneic on minimal exertion however. He is wheezing still but states he is better today as compared to yesterday On 10/30/2016, the patient is being seen in follow-up. I understand that overnight the patient became delirious and somewhat agitated. Currently is a bedside sitter with him at all times. He is being treated for an acute COPD exacerbation he has a left lower lobe pneumonia. He continues to have shortness of breath and extensive bronchospasm and wheezing. Sputum has shown gram-positive cocci and the patient remains on IV Rocephin. He is resting comfortably in bed. He got diuresed adequately with IV Lasix. No chills. No fever. No aspiration. He has a chronic renal insufficiency in the creatinine is stable at 1.7. The Lasix has been switched to 40 mg oral on a daily basis. In terms of COPD exacerbation, the patient remains on bronchodilators, on IV Zosyn as a broad-spectrum antibiotics regarding left lower lobe pneumonia, on a combination of Spiriva and Symbicort and DuoNeb nebulized treatments around the clock, and he is on oral prednisone as part of a burst taper and IV Solu Medrol has been discontinued. Objective - Vital Signs Vital signs: Vital Signs Temp 97.4 F L 10/30/16 15:00 Pulse 84 10/30/16 15:00 Resp 20 10/30/16 15:00 BP 145/81 10/30/16 15:00 Pulse Ox 93 L 10/30/16 15:00 Intake & Output 10/30/16 10/30/16 10/31/16 06:59 18:59 06:59 Intake Total 240 Balance 240 Intake: Oral 240 Other: Voiding Method Urinal Urinal # Voids 3 2 # Bowel Movements 2 0 - Exam Patient is somewhat sedated. He is resting comfortably in bed. No acute distress.Head exam was generally normal. There was no scleral icterus or corneal arcus. Mucous membranes were moist. Neck is short and there is significant crowding of the posterior oropharynx. There is no goiter or neck masses. Lungs sounds are diminished bilaterally along with that there is some scattered external wheezes throughout the lung olson. There is [place] of expiratory phase of breathing.Cardiac exam revealed the PMI to be normally situated and sized. The rhythm was regular and no extrasystoles were noted during several minutes of auscultation. The first and second heart sounds were normal and physiologic splitting of the second heart sound was noted. There were no murmurs, rubs, clicks, or gallops.Abdominal exam revealed normal bowel sounds. The abdomen was soft, non-tender, and without masses, organomegaly, or appreciable enlargement of the abdominal aorta.Examination of the extremities revealed easily palpable radial, femoral and pedal pulses. There was no cyanosis , clubbing or edema. - Labs CBC & Chem 7: 10/30/16 07:53 10/30/16 07:53 Labs: Abnormal Lab Results - Last 24 Hours (Table) 10/30/16 10/30/16 10/30/16 Range/Units 07:36 07:53 07:53 WBC 12.6 H (3.8-10.6) k/uL RBC 3.83 L (4.30-5.90) m/uL Hgb 12.1 L (13.0-17.5) gm/dL Hct 37.7 L (39.0-53.0) % Neutrophils # 10.7 H (1.3-7.7) k/uL Lymphocytes # 0.8 L (1.0-4.8) k/uL Sodium 146 H (137-145) mmol/L Potassium 3.4 L (3.5-5.1) mmol/L Carbon Dioxide 31 H (22-30) mmol/L BUN 41 H (9-20) mg/dL Creatinine 1.77 H (0.66-1.25) mg/dL Glucose 143 H (74-99) mg/dL POC Glucose (mg/dL) 145 H (75-99) mg/dL 10/30/16 10/30/16 Range/Units 11:54 17:12 WBC (3.8-10.6) k/uL RBC (4.30-5.90) m/uL Hgb (13.0-17.5) gm/dL Hct (39.0-53.0) % Neutrophils # (1.3-7.7) k/uL Lymphocytes # (1.0-4.8) k/uL Sodium (137-145) mmol/L Potassium (3.5-5.1) mmol/L Carbon Dioxide (22-30) mmol/L BUN (9-20) mg/dL Creatinine (0.66-1.25) mg/dL Glucose (74-99) mg/dL POC Glucose (mg/dL) 74 L 210 H (75-99) mg/dL Microbiology - Last 24 Hours (Table) 10/29/16 13:25 Urine Culture - Final Urine,Clean Catch 10/27/16 15:00 Blood Culture - Preliminary Blood No Growth after 72 hours 10/29/16 07:00 Gram Stain - Preliminary Sputum Assessment and Plan Plan: Impression: #1 Acute exacerbation of chronic obstructive pulmonary disease secondary to left lower lobe pneumonia. The patient remains on IV Zosyn. The patient remains on a combination of bronchodilators and systemic steroids for acute COPD exacerbation. #2 Acute left lower lobe pneumonia. The patient is on IV Zosyn regarding left lower lobe pneumonia. #3 Acute exacerbation of chronic diastolic congestive heart failure. #4 Anemia of chronic disease. #5 chronic renal failure #6 Hypertension. #7 Hyperlipidemia. #8 Benign prosthetic hypertrophy. #9 gastroesophageal reflux disease. #10 Memory impairment. #11 delirium with some exacerbation secondary to hospitalization and systemic steroid use. Plan continue current treatment. Bedside sitter at all times. We'll follow.
[2016-10-30 20:53] LABS: Glucose,Whole Blood 202 mg/dL (75-99)
[2016-10-30] MEDS ORDERED: FAMOTIDINE 20 MG TAB PO SCH (21:00)
[2016-10-31] MEDS: IPRATROPIUM-ALBUTEROL 3 ML NEB INHALATION PRN ×3 (03:58→20:42)
[2016-10-31 07:28] LABS: Glucose,Whole Blood 81 mg/dL (75-99)
[2016-10-31] MEDS: INSULIN LISPRO (humaLOG) 300 UNIT/3 ML VIAL SQ SCH ×4 (07:57→21:15)
[2016-10-31] MEDS: SYMBICORT 80-4.5 MCG INHALER INHALATION SCH ×2 (08:04→20:43)
[2016-10-31 08:56] LABS: Calcium 8.5 mg/dL (8.4-10.2); Potassium 3.3 mmol/L (3.5-5.1)
[2016-10-31] MEDS: BRIMONIDINE TARTRATE 0.2% DROPS 5 ML BTL BOTH EYES SCH ×2 (09:06→19:59)
[2016-10-31] MEDS: DORZOLAMIDE HCL 2% DROPS 10 ML BTL BOTH EYES SCH ×2 (09:06→20:00)
[2016-10-31] MEDS: FUROSEMIDE 40 MG TAB PO SCH (09:07)
[2016-10-31] MEDS: TIMOLOL 0.5% OPHTH DROPS 5 ML BTL BOTH EYES SCH ×2 (09:07→19:58)
[2016-10-31] MEDS: LISINOPRIL 10 MG TAB PO SCH (09:07)
[2016-10-31] MEDS: TAMSULOSIN 0.4 MG CAP.ER.24H PO SCH (09:07)
[2016-10-31] MEDS: FINASTERIDE 5 MG TAB PO SCH (09:07)
[2016-10-31] MEDS: predniSONE 20 MG TAB PO SCH (09:07)
[2016-10-31] MEDS: HEPARIN SODIUM,PORCINE 5,000 UNIT/ML 1 ML VIAL SQ SCH ×2 (09:08→20:01)
[2016-10-31] MEDS: FERROUS SULFATE 325 MG TAB PO SCH (09:08)
[2016-10-31] MEDS: POTASSIUM CHLORIDE ER 10 MEQ TAB.ER.PRT PO SCH ×2 (09:08→20:00)
[2016-10-31] MEDS: amLODIPine 5 MG TAB PO SCH (09:08)
[2016-10-31] MEDS: FAMOTIDINE 20 MG TAB PO SCH ×2 (09:08→19:59)
[2016-10-31] MEDS: PIPERACILLIN-TAZOBACTAM 3.375 GM in DEXTROSE/WATER 1 50ML.BAG IVPB SCH (09:08)
[2016-10-31] MEDS: PILOCARPINE 2% OPHTH DROPS 15 ML BTL BOTH EYES SCH ×4 (09:09→21:09)
[2016-10-31] MEDS ORDERED: POTASSIUM CHLORIDE ER 20 MEQ TAB.ER PO STA (10:39)
[2016-10-31] MEDS: B COMPLEX-VIT C-VIT E-ZINC 1 EACH TAB PO SCH (12:01)
[2016-10-31] MEDS: AMOXIC-POT CLAV 875-125MG 1 EACH TAB PO SCH ×2 (12:02→19:59)
[2016-10-31 12:08] LABS: Glucose,Whole Blood 228 mg/dL (75-99)
--- NOTE | 2016-10-31 12:49 | PN ---
The patient is an 85-year-old admitted with left lower lobe pneumonia and COPD exacerbation. Patient is doing much better today. Zosyn will be switched to Augmentin. I am expecting his kidney function to improve tomorrow. Patient did not receive Haldol yesterday and patient is much more awake and less confused today. I am expecting his kidney function to improve even better tomorrow, and possibility of discharge tomorrow. REVIEW OF SYSTEMS: CARDIOVASCULAR: No chest pain, no orthopnea, no PND, no palpitations. PULMONARY: Denied any shortness of breath. No cough or hemoptysis. GASTROINTESTINAL: No diarrhea, nausea or vomiting. No abdominal pain. Normoactive bowel sounds. NEUROLOGIC: No headaches, no weakness, no numbness. Medications were reviewed. PHYSICAL EXAMINATION: VITAL SIGNS: Temperature 98.4, pulse of 75, respiratory rate 22, blood pressure 188/99, saturating at 91% on room air. I am not worried about transient elevations of blood pressure. I do not recommend to change any of the antihypertensives today until the kidney function improves. PHYSICAL EXAMINATION: GENERAL: The patient is alert and oriented x3, not in any acute distress. Well developed, well nourished. HEENT: Pupils are round and equally reacting to light. EOMI. No scleral icterus. No conjunctival pallor. Normocephalic, atraumatic. No pharyngeal erythema. No thyromegaly. CARDIOVASCULAR: S1 and S2 present. No murmurs, rubs, or gallops. PULMONARY: Significantly improved wheezing. Patient still has expiratory wheeze, which I am hoping it will improve by tomorrow. ABDOMEN: Soft, nontender, nondistended, normoactive bowel sounds. No palpable organomegaly. MUSCULOSKELETAL: No joint swelling or deformity. EXTREMITIES: No cyanosis, clubbing, or pedal edema. NEUROLOGICAL: Gross neurological examination did not reveal any focal deficits. SKIN: No rashes. Medications were reviewed. LABORATORY DATA: Basic metabolic profile is abnormal for elevated BUN and creatinine. Creatinine remains stable at 1.7. BUN is 39, potassium is 3.3, which will be supplemented. ASSESSMENT AND PLAN: 1. Left lobe pneumonia failed outpatient therapy. Patient was on Zosyn and patient will be started on Augmentin and patient received enough doses of IV antibiotics so far. 2. Chronic obstructive pulmonary disease exacerbation with acute hypercapnic respiratory failure, which is improving. Continue with oral steroids. 3. Acute on chronic diastolic dysfunction. Continue with 40 mg of Lasix. Recheck kidney function. It is reasonable to hold off Lasix for a day or two. 4. Chronic kidney disease Stage III. 5. Acute renal failure secondary azotemia and excessive diuresis, avoid NSAIDS and other nephrotoxic agents. 6. Hypertension, we will leave the blood pressure medications as it is, Lisinopril did worsen his kidney function, I will leave the Lisinopril as it is and recheck the kidney function. It is also reasonable to discontinue Lisinopril temporally until kidney function improves and let the patient's blood pressure stay high until his kidney function improves. 7. Benign prostatic hypertrophy. 8. Possible dementia. 9. Dyslipidemia, PLAN: As mentioned above, per Dr. Medardo Banuelos will follow the patient from tomorrow. Possibility of discharge tomorrow.
--- NOTE | 2016-10-31 15:24 | XR ---
INDICATION: Distended abdomen COMPARISON: Radiograph dated 10/28/16 FINDINGS: Single frontal view of the abdomen demonstrates a normal bowel gas pattern. Mild levoscoliosis centered at L3. Status post right total hip arthroplasty. No evidence of organomegaly, abnormal calcifications or obvious soft tissue masses. The osseous structures are intact. IMPRESSION: Nonobstructive bowel gas pattern.
[2016-10-31 16:37] LABS: Glucose,Whole Blood 107 mg/dL (75-99)
[2016-10-31] MEDS: traZODone HCL 100 MG TAB PO SCH (20:00)
[2016-10-31] MEDS: LATANOPROST 0.005% OPHTH DROPS 2.5 ML BTL BOTH EYES SCH (20:00)
[2016-10-31] MEDS: ATORVASTATIN 10 MG TAB PO SCH (20:00)
[2016-10-31] MEDS: QUEtiapine 25 MG TAB PO PRN (21:10)
[2016-10-31 21:15] LABS: Glucose,Whole Blood 215 mg/dL (75-99)
--- NOTE | 2016-10-31 22:41 | P.PN ---
Subjective COPD exacerbation This is a very pleasant 86-year-old gentleman who follows with Dr. Banuelos as his primary care physician. He has a history of hyperlipidemia, hypertension, memory impairment, renal disease, anemia. He also has a history of chronic obstructive pulmonary disease and follows with our group for the same. He is maintained on Advair and Ventolin in the outpatient setting. He presented here yesterday to the emergency room with complaints of increasing shortness of breath, cough and congestion. His chest x-ray revealed some left basilar infiltrate/atelectasis. There is minimal leukocytosis at 13.7. He is maintaining good O2 saturations in the mid 90s on room air. Afebrile. Creatinine 1.83. He has been initiated on bronchodilators, Symbicort and prednisone. He is on antibiotics in the form of Zosyn. Presently, the patient is awake and alert in no acute distress. He does have a loose nonproductive cough. No chills or night sweats. The patient is seen again today 10/29/2016 in follow-up on the regular medical floor. He is awake and alert in no acute distress. He is maintaining O2 saturations in the 90s on room air. He is laying quite flat in bed without any complaints. He is dyspneic on minimal exertion however. He is wheezing still but states he is better today as compared to yesterday On 10/30/2016, the patient is being seen in follow-up. I understand that overnight the patient became delirious and somewhat agitated. Currently is a bedside sitter with him at all times. He is being treated for an acute COPD exacerbation he has a left lower lobe pneumonia. He continues to have shortness of breath and extensive bronchospasm and wheezing. Sputum has shown gram-positive cocci and the patient remains on IV Rocephin. He is resting comfortably in bed. He got diuresed adequately with IV Lasix. No chills. No fever. No aspiration. He has a chronic renal insufficiency in the creatinine is stable at 1.7. The Lasix has been switched to 40 mg oral on a daily basis. In terms of COPD exacerbation, the patient remains on bronchodilators, on IV Zosyn as a broad-spectrum antibiotics regarding left lower lobe pneumonia, on a combination of Spiriva and Symbicort and DuoNeb nebulized treatments around the clock, and he is on oral prednisone as part of a burst taper and IV Solu Medrol has been discontinued. On the patient is being seen in follow-up. He is much more calm and comfortable and he is awake and following commands and answering questions appropriately. No delirium. No change in mental status. No agitation. The patient is still being treated for an acute COPD exacerbation. He remains short of breath even at rest and she remains extensively bronchospastic and wheezy. The patient is still receiving DuoNeb neb last treatment around-the- clock, Zosyn was switched to oral Augmentin 875 mg by mouth twice a day. The patient is also on Symbicort and a prednisone burst taper that was started 60 mg by mouth daily. Renal function remains stable with a creatinine of 1.7 which is essentially chronic and unchanged. Sputum Gram stain and cultures showing Luma albicans in the flat film of the abdomen showing nonspecific gas pattern. Objective - Vital Signs Vital signs: Vital Signs Temp 97.5 F L 10/31/16 15:00 Pulse 76 10/31/16 20:53 Resp 19 10/31/16 15:00 BP 144/83 10/31/16 15:00 Pulse Ox 98 10/31/16 15:00 Intake & Output 10/31/16 10/31/16 11/01/16 06:59 18:59 06:59 Intake Total 400 Output Total 300 500 Balance -300 -100 Weight 77.5 kg Intake: Oral 400 Output: Urine 300 500 Other: Voiding Method Urinal # Voids 1 # Bowel Movements 1 - Exam He is resting comfortably in bed. No acute distress.Head exam was generally normal. There was no scleral icterus or corneal arcus. Mucous membranes were moist. Neck is short and there is significant crowding of the posterior oropharynx. There is no goiter or neck masses. Lungs sounds are diminished bilaterally along with that there is some scattered external wheezes throughout the lung olson. There is [place] of expiratory phase of breathing.Cardiac exam revealed the PMI to be normally situated and sized. The rhythm was regular and no extrasystoles were noted during several minutes of auscultation. The first and second heart sounds were normal and physiologic splitting of the second heart sound was noted. There were no murmurs, rubs, clicks, or gallops.Abdominal exam revealed normal bowel sounds. The abdomen was soft, non- tender, and without masses, organomegaly, or appreciable enlargement of the abdominal aorta.Examination of the extremities revealed easily palpable radial, femoral and pedal pulses. There was no cyanosis, clubbing or edema. - Labs CBC & Chem 7: 10/30/16 07:53 10/31/16 08:29 Labs: Abnormal Lab Results - Last 24 Hours (Table) 10/31/16 10/31/16 10/31/16 Range/Units 08:29 12:06 16:35 Potassium 3.3 L (3.5-5.1) mmol/L BUN 39 H (9-20) mg/dL Creatinine 1.79 H (0.66-1.25) mg/dL Glucose 176 H (74-99) mg/dL POC Glucose (mg/dL) 228 H 107 H (75-99) mg/dL 10/31/16 Range/Units 21:14 Potassium (3.5-5.1) mmol/L BUN (9-20) mg/dL Creatinine (0.66-1.25) mg/dL Glucose (74-99) mg/dL POC Glucose (mg/dL) 215 H (75-99) mg/dL Microbiology - Last 24 Hours (Table) 10/27/16 15:00 Blood Culture - Preliminary Blood No Growth after 96 hours 10/29/16 07:00 Gram Stain - Final Sputum Sputum Culture - Final Luma albicans 10/29/16 13:25 Urine Culture - Final Urine,Clean Catch Assessment and Plan Plan: Impression: #1 Acute exacerbation of chronic obstructive pulmonary disease secondary to left lower lobe pneumonia. The patient remains on IV Zosyn. The patient remains on a combination of bronchodilators and systemic steroids for acute COPD exacerbation. #2 Acute left lower lobe pneumonia. The patient is on IV Zosyn regarding left lower lobe pneumonia. #3 Acute exacerbation of chronic diastolic congestive heart failure. #4 Anemia of chronic disease. #5 chronic renal failure #6 Hypertension. #7 Hyperlipidemia. #8 Benign prosthetic hypertrophy. #9 gastroesophageal reflux disease. #10 Memory impairment. #11 delirium with some exacerbation secondary to hospitalization and systemic steroid use. Plan Continue Augmentin. Continue bronchodilators. Continue systemic steroids and the patient is on a prednisone burst taper. Renal function remains impaired yet stable. Repeat chest x-ray in the morning to monitor the left lower lobe pulmonary complaints. Follow make further recommendations based on the patient' s prognosis.
[2016-10-31] MEDS: hydrALAZINE HCL 20 MG/ML 1 ML VIAL IVP PRN (23:53)
[2016-11-01] MEDS: IPRATROPIUM-ALBUTEROL 3 ML NEB INHALATION PRN ×5 (05:13→19:42)
[2016-11-01] MEDS: hydrALAZINE HCL 20 MG/ML 1 ML VIAL IVP PRN (05:31)
[2016-11-01 06:50] LABS: Glucose,Whole Blood 80 mg/dL (75-99)
[2016-11-01] MEDS: amLODIPine 5 MG TAB PO SCH ×2 (07:03→20:14)
[2016-11-01] MEDS: LISINOPRIL 10 MG TAB PO SCH (07:03)
[2016-11-01] MEDS: INSULIN LISPRO (humaLOG) 300 UNIT/3 ML VIAL SQ SCH ×4 (07:44→22:31)
[2016-11-01] MEDS: SYMBICORT 80-4.5 MCG INHALER INHALATION SCH ×2 (08:14→19:42)
[2016-11-01] MEDS: predniSONE 20 MG TAB PO SCH (09:00)
[2016-11-01 09:21] LABS: Calcium 8.9 mg/dL (8.4-10.2); Potassium 4.4 mmol/L (3.5-5.1)
[2016-11-01] MEDS: TIMOLOL 0.5% OPHTH DROPS 5 ML BTL BOTH EYES SCH ×2 (09:32→20:20)
[2016-11-01] MEDS: FINASTERIDE 5 MG TAB PO SCH (09:32)
[2016-11-01] MEDS: AMOXIC-POT CLAV 875-125MG 1 EACH TAB PO SCH ×2 (09:32→22:29)
[2016-11-01] MEDS: FERROUS SULFATE 325 MG TAB PO SCH (09:33)
[2016-11-01] MEDS: TAMSULOSIN 0.4 MG CAP.ER.24H PO SCH (09:33)
[2016-11-01] MEDS: FAMOTIDINE 20 MG TAB PO SCH ×2 (09:34→20:15)
[2016-11-01] MEDS: HEPARIN SODIUM,PORCINE 5,000 UNIT/ML 1 ML VIAL SQ SCH ×2 (09:34→20:16)
[2016-11-01] MEDS: FUROSEMIDE 40 MG TAB PO SCH (09:34)
[2016-11-01] MEDS: POTASSIUM CHLORIDE ER 10 MEQ TAB.ER.PRT PO SCH ×2 (09:34→20:16)
[2016-11-01] MEDS: PILOCARPINE 2% OPHTH DROPS 15 ML BTL BOTH EYES SCH ×4 (09:36→20:16)
[2016-11-01] MEDS: DEXAMETHASONE 4 MG TAB PO SCH ×3 (09:38→22:30)
[2016-11-01] MEDS: DORZOLAMIDE HCL 2% DROPS 10 ML BTL BOTH EYES SCH ×2 (09:40→20:15)
[2016-11-01] MEDS: BRIMONIDINE TARTRATE 0.2% DROPS 5 ML BTL BOTH EYES SCH ×2 (09:43→20:15)
[2016-11-01 11:59] LABS: Glucose,Whole Blood 133 mg/dL (75-99)
--- NOTE | 2016-11-01 12:32 | XR ---
EXAMINATION TYPE: XR chest 1V portable DATE OF EXAM: 11/01/2016 12:28 PM COMPARISON: 10/28/2016 HISTORY: Shortness of breath TECHNIQUE: Single frontal view of the chest is obtained. FINDINGS: Bilateral infiltrate and small effusion. No pneumothorax. No overt failure. Arthropathy of the right shoulder. Heart size stable. IMPRESSION: 1. Bilateral areas of infiltrate. Follow to resolution to exclude underlying neoplasm.
[2016-11-01] MEDS: B COMPLEX-VIT C-VIT E-ZINC 1 EACH TAB PO SCH (12:51)
--- NOTE | 2016-11-01 13:20 | P.PN ---
Subjective Principal diagnosis: Left lower lobe pneumonia Patient is an 86-year-old male, patient of Dr. Banuelos in the outpatient setting, with complex medical history noted below significant for dyslipidemia, hypertension, chronic renal failure stage III, pancreatitis, anemia of chronic disease, COPD, gout, glaucoma, BPH, hypertension, chronic pain syndrome, constipation, keloids, and dementia. Patient admitted with evidence of left lower lobe pneumonia, failed outpatient treatment, acute exacerbation of COPD, and acute exacerbation of chronic diastolic congestive heart failure. Patient is being followed by Dr. Cisse for pulmonary service and continues on IV antibiotics, bronchodilators, Symbicort, and prednisone. Patient has also been evaluated by psychiatric service with history of recent behavioral changes per guardian. In addition, patient is being followed by cardiology for history of congestive heart failure. Upon examination, patient is verbally aggressive and irrational. Patient reports that his breathing has not improved or gotten worse since yesterday. Denies chills, nausea, vomiting, or chest pain. Patient is afebrile. Oxygen saturation 97% on 2 L nasal cannula. Blood pressures running high with systolic blood pressure noted to be in 182-210 and diastolic blood pressure greater than 90. Creatinine improved to 1.49. Repeat abdominal x-ray from yesterday again with no evidence of bowel obstruction. Chest x-ray chest x-ray from today with evidence of bilateral infiltrate and small effusion. No evidence of overt heart failure. Patient is being followed by Dr. Petersen and cardiology service. Objective - Vital Signs Vital signs: Vital Signs Temp 97.4 F L 11/01/16 06:48 Pulse 84 11/01/16 11:57 Resp 20 11/01/16 08:00 BP 187/90 11/01/16 06:48 Pulse Ox 97 11/01/16 06:48 Intake & Output 10/31/16 11/01/16 11/01/16 18:59 06:59 18:59 Intake Total 400 100 Output Total 500 Balance -100 100 Weight 77.5 kg Intake: Oral 400 100 Output: Urine 500 Other: Voiding Method Urinal Urinal # Voids 2 1 # Bowel Movements 1 - Exam GENERAL: Pt awake and alert, well-nourished, and in no acute distress. HEAD: Atraumatic, normocephalic. EYES: Pupils equal and round. Sclera anicteric, conjunctiva are normal. ENT: Moist mucous membranes. NECK:Supple without lymphadenopathy or JVD. LUNGS: Breath sounds diminished with rhonchi and expiratory wheezing. HEART: Heart S1, S2, no S3 or S4. Regular rate and rhythm. No murmurs, rubs or gallops. ABDOMEN: Soft, tenderness to left lower quadrant, distended, active bowel sounds. No guarding, no rebound. EXTREMITIES: Palpable peripheral pulses. 1+ edema to bilateral lower extremities. No calf tenderness. NEUROLOGICAL: Pt oriented x 3. No focal deficits. Strength and sensation grossly intact. PSYCH: Agitated. SKIN: Warm, dry and intact. - Labs CBC & Chem 7: 10/30/16 07:53 11/01/16 08:28 Labs: Abnormal Lab Results - Last 24 Hours (Table) 10/31/16 10/31/16 11/01/16 Range/Units 16:35 21:14 08:28 Sodium 147 H (137-145) mmol/L Carbon Dioxide 31 H (22-30) mmol/L BUN 37 H (9-20) mg/dL Creatinine 1.49 H (0.66-1.25) mg/dL POC Glucose (mg/dL) 107 H 215 H (75-99) mg/dL 11/01/16 Range/Units 11:53 Sodium (137-145) mmol/L Carbon Dioxide (22-30) mmol/L BUN (9-20) mg/dL Creatinine (0.66-1.25) mg/dL POC Glucose (mg/dL) 133 H (75-99) mg/dL Microbiology - Last 24 Hours (Table) 10/27/16 15:00 Blood Culture - Preliminary Blood No Growth after 96 hours 10/29/16 07:00 Gram Stain - Final Sputum Sputum Culture - Final Luma albicans Assessment and Plan Plan: Impression and plan: 1. Left lower lobe pneumonia, present on admission, failed outpatient treatment. Pulmonary service on consult, recommendations noted. Continue antibiotics in the form of Augmentin, nebulized updraft treatments, and IV hydration. Continue supplemental oxygen to keep saturation greater than 92%. Sputum Gram stain and culture showing Luma albicans. 2. Exacerbation of COPD. Continue nebulized updraft treatments, continue Symbicort, continue steroids, continue supplemental oxygen. Prednisone has been changed to Decadron 40 mg 3 times a day by mouth which is roughly equivalent to prednisone 60 mg daily to decrease confusion and agitation. 3. Acute on chronic diastolic heart failure. Echocardiogram with evidence pseudonormal pelvic function with EF of 60-65%. Continue oral Lasix. 4. Anemia of chronic disease, chronic kidney disease and iron deficiency. Continue ferrous sulfate. 5. Chronic renal failure, stage III. 6. Dyslipidemia. Continue Lipitor. 7. Urinary incontinence. Urine culture negative. 8. Random elevated blood sugar, improved. Suspect secondary to steroids. Will check blood sugars before meals at bedtime and cover with Humalog sliding scale. 9. Right lower quadrant abdominal pain. Abdominal x-ray negative for obstruction. 10. Hypertensive urgency. Cardiology is following. 11. BPH. Continue Flomax and Proscar. 12. Glaucoma. Continue eyedrops. 13. History of gout. 14. History of constipation. Continue Colace. 15. History of anxiety and depression. 16. History of recent insomnia and possible manic behavior. Consult has been requested for psychiatry service, recommendations noted. Continue Seroquel and trazodone. 17. Dyslipidemia. Continue Lipitor. 18. History of pancreatitis. 19. Gait dysfunction. Maintain fall precautions. Consult PT OT. Plan to discharge to [facility]. 20. DVT prophylaxis. Continue antiembolism hose knee-high and subcu heparin. 21. GI prophylaxis. Continue Protonix. 22. Repeat CBC, BMP in a.m. The above impression and plan have been discussed and directed by Dr. Banuelos. Iliana HUERTA acting as scribe for Dr. Banuelos.
--- NOTE | 2016-11-01 16:26 | P.PN ---
Subjective Principal diagnosis: Acute left lower lobe pneumonia This is a very pleasant 86-year-old gentleman who follows with Dr. Banuelos as his primary care physician. He has a history of hyperlipidemia, hypertension, memory impairment, renal disease, anemia. He also has a history of chronic obstructive pulmonary disease and follows with our group for the same. He is maintained on Advair and Ventolin in the outpatient setting. He presented here yesterday to the emergency room with complaints of increasing shortness of breath, cough and congestion. His chest x-ray revealed some left basilar infiltrate/atelectasis. There is minimal leukocytosis at 13.7. He is maintaining good O2 saturations in the mid 90s on room air. Afebrile. Creatinine 1.83. He has been initiated on bronchodilators, Symbicort and prednisone. He is on antibiotics in the form of Zosyn. Presently, the patient is awake and alert in no acute distress. He does have a loose nonproductive cough. No chills or night sweats. The patient is seen again today 10/29/2016 in follow-up on the regular medical floor. He is awake and alert in no acute distress. He is maintaining O2 saturations in the 90s on room air. He is laying quite flat in bed without any complaints. He is dyspneic on minimal exertion however. He is wheezing still but states he is better today as compared to yesterday On 10/30/2016, the patient is being seen in follow-up. I understand that overnight the patient became delirious and somewhat agitated. Currently is a bedside sitter with him at all times. He is being treated for an acute COPD exacerbation he has a left lower lobe pneumonia. He continues to have shortness of breath and extensive bronchospasm and wheezing. Sputum has shown gram-positive cocci and the patient remains on IV Rocephin. He is resting comfortably in bed. He got diuresed adequately with IV Lasix. No chills. No fever. No aspiration. He has a chronic renal insufficiency in the creatinine is stable at 1.7. The Lasix has been switched to 40 mg oral on a daily basis. In terms of COPD exacerbation, the patient remains on bronchodilators, on IV Zosyn as a broad-spectrum antibiotics regarding left lower lobe pneumonia, on a combination of Spiriva and Symbicort and DuoNeb nebulized treatments around the clock, and he is on oral prednisone as part of a burst taper and IV Solu Medrol has been discontinued. On the patient is being seen in follow-up. He is much more calm and comfortable and he is awake and following commands and answering questions appropriately. No delirium. No change in mental status. No agitation. The patient is still being treated for an acute COPD exacerbation. He remains short of breath even at rest and she remains extensively bronchospastic and wheezy. The patient is still receiving DuoNeb neb last treatment around-the- clock, Zosyn was switched to oral Augmentin 875 mg by mouth twice a day. The patient is also on Symbicort and a prednisone burst taper that was started 60 mg by mouth daily. Renal function remains stable with a creatinine of 1.7 which is essentially chronic and unchanged. Sputum Gram stain and cultures showing Luma albicans in the flat film of the abdomen showing nonspecific gas pattern. On 11/01/2016, patient is experiencing more cough wheezing and shortness of breath. Patient also had some issues with Solu-Medrol, and I recommended switching Solu-Medrol to Decadron. Labs were reviewed, creatinine is 1.49 today. Seems to be improving compared to presentation creatinine. However his pulmonary status seems to be a bit worse today. Patient is noted to have diffuse wheezing bilaterally on physical examination. Hence I recommended a follow-up chest x-ray. It showed by basilar atelectasis or infiltrates. Objective - Vital Signs Vital signs: Vital Signs Temp 96.8 F L 11/01/16 15:00 Pulse 88 11/01/16 16:07 Resp 16 11/01/16 15:00 BP 146/73 11/01/16 15:00 Pulse Ox 97 11/01/16 15:00 Intake & Output 10/31/16 11/01/16 11/01/16 18:59 06:59 18:59 Intake Total 400 100 Output Total 500 Balance -100 100 Weight 77.5 kg Intake: Oral 400 100 Output: Urine 500 Other: Voiding Method Urinal Urinal # Voids 2 1 # Bowel Movements 1 - Exam Physical Exam: Revealed an 86-year-old male in mild respiratory distress with coughing and wheezing almost continuously. HEENT:[Neck is supple.] [No neck masses.] [No thyromegaly.] [No JVD.] Chest: [Diffuse rhonchi and wheezes noted bilaterally..] Cardiac Exam: [Normal S1 and S2, no S3 gallop, no murmur.] Abdomen: [Soft, nontender, no megaly, no rebound, no guarding, normal bowel sounds.] Extremities: [No clubbing, no edema, no cyanosis.] Neurological Exam: [No focal neurologic deficit.] - Labs CBC & Chem 7: 10/30/16 07:53 11/01/16 08:28 Labs: Abnormal Lab Results - Last 24 Hours (Table) 10/31/16 10/31/16 11/01/16 Range/Units 16:35 21:14 08:28 Sodium 147 H (137-145) mmol/L Carbon Dioxide 31 H (22-30) mmol/L BUN 37 H (9-20) mg/dL Creatinine 1.49 H (0.66-1.25) mg/dL POC Glucose (mg/dL) 107 H 215 H (75-99) mg/dL 11/01/16 Range/Units 11:53 Sodium (137-145) mmol/L Carbon Dioxide (22-30) mmol/L BUN (9-20) mg/dL Creatinine (0.66-1.25) mg/dL POC Glucose (mg/dL) 133 H (75-99) mg/dL Microbiology - Last 24 Hours (Table) 10/27/16 15:00 Blood Culture - Preliminary Blood No Growth after 96 hours Assessment and Plan Plan: #1 Acute exacerbation of chronic obstructive pulmonary disease secondary to left lower lobe pneumonia. The patient remains on IV Zosyn. The patient remains on a combination of bronchodilators and systemic steroids for acute COPD exacerbation. #2 Acute left lower lobe pneumonia. The patient is on IV Zosyn regarding left lower lobe pneumonia. #3 Acute exacerbation of chronic diastolic congestive heart failure. #4 Anemia of chronic disease. #5 chronic renal failure #6 Hypertension. #7 Hyperlipidemia. #8 Benign prosthetic hypertrophy. #9 gastroesophageal reflux disease. #10 Memory impairment. #11 delirium with some exacerbation secondary to hospitalization and systemic steroid use. Solu-Medrol was switched to Decadron. Recommendation: Continue present treatment plan, will continue to follow, patient is not ready for any discharge planning of this point. Time with Patient: Less than 30
[2016-11-01 17:00] LABS: Glucose,Whole Blood 205 mg/dL (75-99)
[2016-11-01] MEDS: LATANOPROST 0.005% OPHTH DROPS 2.5 ML BTL BOTH EYES SCH (20:20)
[2016-11-01 21:13] LABS: Glucose,Whole Blood 318 mg/dL (75-99)
[2016-11-01] MEDS: ATORVASTATIN 10 MG TAB PO SCH (22:29)
[2016-11-01] MEDS: traZODone HCL 100 MG TAB PO SCH (22:30)
[2016-11-02 07:14] LABS: Glucose,Whole Blood 132 mg/dL (75-99)
[2016-11-02] MEDS: IPRATROPIUM-ALBUTEROL 3 ML NEB INHALATION PRN ×4 (07:40→20:05)
[2016-11-02] MEDS: SYMBICORT 80-4.5 MCG INHALER INHALATION SCH ×2 (07:40→20:05)
[2016-11-02] MEDS: INSULIN LISPRO (humaLOG) 300 UNIT/3 ML VIAL SQ SCH ×4 (08:24→21:26)
[2016-11-02] MEDS: amLODIPine 5 MG TAB PO SCH ×2 (08:25→20:39)
[2016-11-02] MEDS: AMOXIC-POT CLAV 875-125MG 1 EACH TAB PO SCH ×2 (08:25→20:39)
[2016-11-02] MEDS: BRIMONIDINE TARTRATE 0.2% DROPS 5 ML BTL BOTH EYES SCH ×2 (08:25→21:24)
[2016-11-02] MEDS: DEXAMETHASONE 4 MG TAB PO SCH ×3 (08:25→20:41)
[2016-11-02] MEDS: FUROSEMIDE 40 MG TAB PO SCH (08:26)
[2016-11-02] MEDS: FAMOTIDINE 20 MG TAB PO SCH ×2 (08:26→20:40)
[2016-11-02] MEDS: FINASTERIDE 5 MG TAB PO SCH (08:26)
[2016-11-02] MEDS: DORZOLAMIDE HCL 2% DROPS 10 ML BTL BOTH EYES SCH ×2 (08:26→21:08)
[2016-11-02] MEDS: FERROUS SULFATE 325 MG TAB PO SCH (08:26)
[2016-11-02] MEDS: HEPARIN SODIUM,PORCINE 5,000 UNIT/ML 1 ML VIAL SQ SCH ×2 (08:26→20:40)
[2016-11-02] MEDS: TIMOLOL 0.5% OPHTH DROPS 5 ML BTL BOTH EYES SCH ×2 (08:27→20:51)
[2016-11-02] MEDS: POTASSIUM CHLORIDE ER 10 MEQ TAB.ER.PRT PO SCH ×2 (08:27→20:40)
[2016-11-02] MEDS: TAMSULOSIN 0.4 MG CAP.ER.24H PO SCH (08:27)
[2016-11-02] MEDS: LISINOPRIL 20 MG TAB PO SCH (08:27)
[2016-11-02 08:39] LABS: Calcium 9.2 mg/dL (8.4-10.2); Potassium 4.8 mmol/L (3.5-5.1)
[2016-11-02 09:10] LABS: Basophils % (A) 0 %; CH 31.8; Eosinophils % (A) 0 %; HCT 36.6 % (39.0-53.0); HDW 2.41; HGB 11.7 gm/dL (13.0-17.5); Luc # (Auto) 0.15; Luc % (Auto) 1; Lymphocytes % (A) 8 %; MCH 31.8 pg (25.0-35.0); MCHC 31.9 g/dL (31.0-37.0); MCV 99.9 fL (80.0-100.0); Macrocytosis Slight; Mean Platelet Volume 7.4; Monocytes # (A) 0.6 k/uL (0-1.0); Monocytes % (A) 4 %; Neutrophils # (A) 11.2 k/uL (1.3-7.7); Neutrophils % (A) 87 %; RBC 3.66 m/uL (4.30-5.90); WBC (Perox) 12.78
[2016-11-02] MEDS: PILOCARPINE 2% OPHTH DROPS 15 ML BTL BOTH EYES SCH ×4 (09:30→20:44)
[2016-11-02] MEDS: DOCUSATE 100 MG CAP PO PRN (10:29)
[2016-11-02 11:31] LABS: Glucose,Whole Blood 217 mg/dL (75-99)
[2016-11-02] MEDS: B COMPLEX-VIT C-VIT E-ZINC 1 EACH TAB PO SCH (13:16)
--- NOTE | 2016-11-02 14:45 | P.PN ---
Subjective Principal diagnosis: Left lower lobe pneumonia Patient is an 86-year-old male, patient of Dr. Banuelos in the outpatient setting, with complex medical history noted below significant for dyslipidemia, hypertension, chronic renal failure stage III, pancreatitis, anemia of chronic disease, COPD, gout, glaucoma, BPH, hypertension, chronic pain syndrome, constipation, keloids, and dementia. Patient admitted with evidence of left lower lobe pneumonia, failed outpatient treatment, acute exacerbation of COPD, and acute exacerbation of chronic diastolic congestive heart failure. Patient is being followed by Dr. Petersen for pulmonary service and continues on IV antibiotics, bronchodilators, Symbicort, and decadron. Patient has also been evaluated by psychiatric service with history of recent behavioral changes per guardian. In addition, patient is being followed by cardiology for history of congestive heart failure. Upon examination, patient is sitting up in a chair. Patient reports that his breathing has improved a little since yesterday. Complains of nonproductive cough. Patient is anxious to get up and moving around. Denies chills, nausea, vomiting, or chest pain. Patient is afebrile. Oxygen saturation 92% on 2 L nasal cannula. WBC increased to 13. Creatinine improved to 1.39. Patient is being followed by Dr. Petersen and cardiology service. Objective - Vital Signs Vital signs: Vital Signs Temp 97.9 F 11/02/16 07:00 Pulse 92 11/02/16 11:32 Resp 19 11/02/16 07:00 BP 160/95 11/02/16 07:00 Pulse Ox 92 L 11/02/16 07:42 Intake & Output 11/01/16 11/02/16 11/02/16 18:59 06:59 18:59 Output Total 350 550 400 Balance -350 -550 -400 Weight 73.5 kg Output: Urine 350 550 400 Other: Voiding Method Urinal Urinal # Voids 1 2 3 # Bowel Movements 1 - Exam GENERAL: Pt awake and alert, well-nourished, and in no acute distress. HEAD: Atraumatic, normocephalic. EYES: Pupils equal and round. Sclera anicteric, conjunctiva are normal. ENT: Moist mucous membranes. NECK:Supple without lymphadenopathy or JVD. LUNGS: Breath sounds diminished with rhonchi and expiratory wheezing. HEART: Heart S1, S2, no S3 or S4. Regular rate and rhythm. No murmurs, rubs or gallops. ABDOMEN: Soft, tenderness to left lower quadrant, distended, active bowel sounds. No guarding, no rebound. EXTREMITIES: Palpable peripheral pulses. 1+ edema to bilateral lower extremities. No calf tenderness. NEUROLOGICAL: Pt oriented x 3. No focal deficits. Strength and sensation grossly intact. PSYCH: Calm. SKIN: Warm, dry and intact. - Labs CBC & Chem 7: 11/02/16 07:16 11/02/16 07:16 Labs: Abnormal Lab Results - Last 24 Hours (Table) 11/01/16 11/01/16 11/02/16 Range/Units 16:57 21:11 07:12 WBC (3.8-10.6) k/uL RBC (4.30-5.90) m/uL Hgb (13.0-17.5) gm/dL Hct (39.0-53.0) % Neutrophils # (1.3-7.7) k/uL Carbon Dioxide (22-30) mmol/L BUN (9-20) mg/dL Creatinine (0.66-1.25) mg/dL Glucose (74-99) mg/dL POC Glucose (mg/dL) 205 H 318 H 132 H (75-99) mg/dL 11/02/16 11/02/16 11/02/16 Range/Units 07:16 07:16 11:30 WBC 13.0 H (3.8-10.6) k/uL RBC 3.66 L (4.30-5.90) m/uL Hgb 11.7 L (13.0-17.5) gm/dL Hct 36.6 L (39.0-53.0) % Neutrophils # 11.2 H (1.3-7.7) k/uL Carbon Dioxide 32 H (22-30) mmol/L BUN 34 H (9-20) mg/dL Creatinine 1.39 H (0.66-1.25) mg/dL Glucose 120 H (74-99) mg/dL POC Glucose (mg/dL) 217 H (75-99) mg/dL Microbiology - Last 24 Hours (Table) 10/27/16 15:00 Blood Culture - Preliminary Blood No Growth after 120 hours Assessment and Plan Plan: Impression and plan: 1. Left lower lobe pneumonia, present on admission, failed outpatient treatment. Pulmonary service on consult, recommendations noted. Continue antibiotics in the form of Augmentin, nebulized updraft treatments, and IV hydration. Continue supplemental oxygen to keep saturation greater than 92%. Sputum Gram stain and culture showing Luma albicans. 2. Exacerbation of COPD. Continue nebulized updraft treatments, continue Symbicort, continue steroids, continue supplemental oxygen. Continue Decadron 40 mg 3 times a day by mouth . 3. Acute on chronic diastolic heart failure. Echocardiogram with evidence pseudonormal LV function with EF of 60-65%. Continue oral Lasix. 4. Anemia of chronic disease, chronic kidney disease and iron deficiency. Continue ferrous sulfate. 5. Chronic renal failure, stage III. 6. Dyslipidemia. Continue Lipitor. 7. Urinary incontinence. Urine culture negative. 8. Random elevated blood sugar, improved. Suspect secondary to steroids. Will check blood sugars before meals at bedtime and cover with Humalog sliding scale. 9. Left lower quadrant abdominal pain. Abdominal x-ray negative for obstruction. 10. Hypertensive urgency. Cardiology is following. 11. BPH. Continue Flomax and Proscar. 12. Glaucoma. Continue eyedrops. 13. History of gout. 14. History of constipation. Continue Colace. 15. History of anxiety and depression. 16. History of recent insomnia and possible manic behavior. Consult has been requested for psychiatry service, recommendations noted. Continue Seroquel and trazodone. 17. Dyslipidemia. Continue Lipitor. 18. History of pancreatitis. 19. Gait dysfunction. Maintain fall precautions. Consult PT OT. Plan to discharge to [facility]. 20. DVT prophylaxis. Continue antiembolism hose knee-high and subcu heparin. 21. GI prophylaxis. Continue Protonix. 22. Repeat CBC, BMP in a.m. The above impression and plan have been discussed and directed by Dr. Banuelos. Iliana HUERTA acting as scribe for Dr. Banuelos.
--- NOTE | 2016-11-02 16:47 | P.PN ---
Subjective Principal diagnosis: COPD exacerbation This is a very pleasant 86-year-old gentleman who follows with Dr. Banuelos as his primary care physician. He has a history of hyperlipidemia, hypertension, memory impairment, renal disease, anemia. He also has a history of chronic obstructive pulmonary disease and follows with our group for the same. He is maintained on Advair and Ventolin in the outpatient setting. He presented here yesterday to the emergency room with complaints of increasing shortness of breath, cough and congestion. His chest x-ray revealed some left basilar infiltrate/atelectasis. There is minimal leukocytosis at 13.7. He is maintaining good O2 saturations in the mid 90s on room air. Afebrile. Creatinine 1.83. He has been initiated on bronchodilators, Symbicort and prednisone. He is on antibiotics in the form of Zosyn. Presently, the patient is awake and alert in no acute distress. He does have a loose nonproductive cough. No chills or night sweats. The patient is seen again today 11/02/2016 in follow-up on the regular medical floor. He is currently sitting up in the chair at the bedside. He is awake and alert in no acute distress. He is maintaining O2 saturations in the 90s on room air. He denies any worsening shortness of breath, cough or congestion. Objective - Vital Signs Vital signs: Vital Signs Temp 98.1 F 11/02/16 15:00 Pulse 100 11/02/16 15:29 Resp 20 11/02/16 15:00 BP 143/95 11/02/16 15:00 Pulse Ox 94 L 11/02/16 15:00 Intake & Output 11/01/16 11/02/16 11/02/16 18:59 06:59 18:59 Output Total 350 550 400 Balance -350 -550 -400 Weight 73.5 kg Output: Urine 350 550 400 Other: Voiding Method Urinal Urinal # Voids 1 2 3 # Bowel Movements 1 - Exam GENERAL EXAM: Alert, active, comfortable in no apparent distress. HEAD: Normocephalic. EYES: Normal reaction of pupils, equal size. NOSE: Clear with pink turbinates. THROAT: No erythema or exudates. NECK: No masses, no JVD. CHEST: No chest wall deformity. LUNGS: Equal air entry with faint end expiratory wheeze. Diminished.. CVS: S1 and S2 normal with no audible murmurs, regular rhythm. ABDOMEN: No hepatosplenomegaly, normal bowel sounds, no guarding or rigidity. SPINE: No scoliosis or deformity SKIN: No rashes CENTRAL NERVOUS SYSTEM: No focal deficits, tone is normal in all 4 extremities. Extremities: There is no peripheral edema. No clubbing. Peripheral pulses are intact. - Labs CBC & Chem 7: 11/02/16 07:16 11/02/16 07:16 Labs: Abnormal Lab Results - Last 24 Hours (Table) 11/01/16 11/01/16 11/02/16 Range/Units 16:57 21:11 07:12 WBC (3.8-10.6) k/uL RBC (4.30-5.90) m/uL Hgb (13.0-17.5) gm/dL Hct (39.0-53.0) % Neutrophils # (1.3-7.7) k/uL Carbon Dioxide (22-30) mmol/L BUN (9-20) mg/dL Creatinine (0.66-1.25) mg/dL Glucose (74-99) mg/dL POC Glucose (mg/dL) 205 H 318 H 132 H (75-99) mg/dL 11/02/16 11/02/16 11/02/16 Range/Units 07:16 07:16 11:30 WBC 13.0 H (3.8-10.6) k/uL RBC 3.66 L (4.30-5.90) m/uL Hgb 11.7 L (13.0-17.5) gm/dL Hct 36.6 L (39.0-53.0) % Neutrophils # 11.2 H (1.3-7.7) k/uL Carbon Dioxide 32 H (22-30) mmol/L BUN 34 H (9-20) mg/dL Creatinine 1.39 H (0.66-1.25) mg/dL Glucose 120 H (74-99) mg/dL POC Glucose (mg/dL) 217 H (75-99) mg/dL Microbiology - Last 24 Hours (Table) 10/27/16 15:00 Blood Culture - Preliminary Blood No Growth after 120 hours Assessment and Plan Plan: Impression: #1 Acute exacerbation of chronic obstructive pulmonary disease secondary to left lower lobe pneumonia. #2 Acute left lower lobe pneumonia. #3 Acute exacerbation of chronic diastolic congestive heart failure. #4 Anemia of chronic disease. #5 Acute on chronic kidney disease, current creatinine 1.71. #6 Hypertension. #7 Hyperlipidemia. #8 Benign prosthetic hypertrophy. #9 Gastroesophageal reflux disease. #10 Memory impairment. Plan: The patient was seen and evaluated by Dr. Petersen. His most recent chest x-ray was reviewed. We'll go ahead and continue with the patient's current medications including bronchodilators, Symbicort, Decadron. We'll continue antibiotics in the form of Augmentin. He is receiving diuretics. He is on heparin for DVT prophylaxis. He is on Protonix for GI prophylaxis. We will increase his activity as tolerated. We'll continue to follow make further recommendations based on his clinical status. Discharge planning is in place.
[2016-11-02 17:09] LABS: Glucose,Whole Blood 113 mg/dL (75-99)
[2016-11-02] MEDS: traZODone HCL 100 MG TAB PO SCH (20:40)
[2016-11-02] MEDS: ATORVASTATIN 10 MG TAB PO SCH (20:40)
[2016-11-02] MEDS: LATANOPROST 0.005% OPHTH DROPS 2.5 ML BTL BOTH EYES SCH (20:48)
[2016-11-02 21:17] LABS: Glucose,Whole Blood 206 mg/dL (75-99)
[2016-11-03] MEDS: IPRATROPIUM-ALBUTEROL 3 ML NEB INHALATION PRN ×4 (00:24→11:28)
[2016-11-03 06:59] LABS: Glucose,Whole Blood 140 mg/dL (75-99)
[2016-11-03] MEDS: SYMBICORT 80-4.5 MCG INHALER INHALATION SCH (07:34)
[2016-11-03] MEDS: AMOXIC-POT CLAV 875-125MG 1 EACH TAB PO SCH (07:51)
[2016-11-03] MEDS: PILOCARPINE 2% OPHTH DROPS 15 ML BTL BOTH EYES SCH ×2 (07:51→12:38)
[2016-11-03 07:52] VITALS: BP 167/95; RESP 18; TEMP 97.6
[2016-11-03] MEDS: FUROSEMIDE 40 MG TAB PO SCH (07:52)
[2016-11-03] MEDS: FAMOTIDINE 20 MG TAB PO SCH (07:52)
[2016-11-03] MEDS: TAMSULOSIN 0.4 MG CAP.ER.24H PO SCH (07:52)
[2016-11-03] MEDS: FINASTERIDE 5 MG TAB PO SCH (07:52)
[2016-11-03] MEDS: amLODIPine 5 MG TAB PO SCH (07:52)
[2016-11-03] MEDS: LISINOPRIL 20 MG TAB PO SCH (07:52)
[2016-11-03] MEDS: HEPARIN SODIUM,PORCINE 5,000 UNIT/ML 1 ML VIAL SQ SCH (07:53)
[2016-11-03] MEDS: DEXAMETHASONE 4 MG TAB PO SCH (07:53)
[2016-11-03] MEDS: POTASSIUM CHLORIDE ER 10 MEQ TAB.ER.PRT PO SCH (07:53)
[2016-11-03] MEDS: FERROUS SULFATE 325 MG TAB PO SCH (07:53)
[2016-11-03] MEDS: INSULIN LISPRO (humaLOG) 300 UNIT/3 ML VIAL SQ SCH ×2 (07:53→12:39)
[2016-11-03] MEDS: DORZOLAMIDE HCL 2% DROPS 10 ML BTL BOTH EYES SCH (07:58)
[2016-11-03] MEDS: BRIMONIDINE TARTRATE 0.2% DROPS 5 ML BTL BOTH EYES SCH (08:03)
[2016-11-03] MEDS: TIMOLOL 0.5% OPHTH DROPS 5 ML BTL BOTH EYES SCH (08:05)
[2016-11-03 08:49] LABS: Basophils # (A) 0.1 k/uL (0-0.2); Basophils % (A) 1 %; CH 31.8; CHCM 32.1; Eosinophils % (A) 0 %; HCT 38.1 % (39.0-53.0); HDW 2.39; HGB 12.5 gm/dL (13.0-17.5); Luc % (Auto) 1; Lymphocytes # (A) 1.4 k/uL (1.0-4.8); Lymphocytes % (A) 7 %; MCH 32.5 pg (25.0-35.0); MCHC 32.7 g/dL (31.0-37.0); MCV 99.4 fL (80.0-100.0); Macrocytosis Slight; Mean Platelet Volume 7.8; Monocytes # (A) 0.7 k/uL (0-1.0); Monocytes % (A) 3 %; Neutrophils # (A) 18.5 k/uL (1.3-7.7); Neutrophils % (A) 89 %; RBC 3.83 m/uL (4.30-5.90); RDW 15.1 % (11.5-15.5); WBC 20.9 k/uL (3.8-10.6); WBC (Perox) 21.72
[2016-11-03 08:53] LABS: Calcium 9.5 mg/dL (8.4-10.2); Potassium 4.5 mmol/L (3.5-5.1)
[2016-11-03 10:04] VITALS: BMI 24.0
[2016-11-03 11:47] VITALS: PULSE 82
[2016-11-03 12:14] LABS: Glucose,Whole Blood 146 mg/dL (75-99)
[2016-11-03] MEDS: B COMPLEX-VIT C-VIT E-ZINC 1 EACH TAB PO SCH (12:39)
--- NOTE | 2016-11-03 13:07 | P.DS ---
Providers Date of admission: 10/27/16 14:47 Expected date of discharge: 11/03/16 Attending physician: Medardo Banuelos Consults: Dr. Petersen from pulmonary service, cardiology service, psychiatry service Primary care physician: Medardo Banuelos [facility] Course: Patient is an 86-year-old male, patient of Dr. Banuelos in the outpatient setting, with complex medical history significant for dyslipidemia, hypertension, chronic renal failure stage III, pancreatitis, anemia of chronic disease, COPD, gout, glaucoma, BPH, hypertension, chronic pain syndrome, constipation, and keloids. Patient admitted with evidence of left lower lobe pneumonia, failed outpatient treatment, acute exacerbation of COPD, and acute exacerbation of chronic diastolic congestive heart failure. Patient was evaluated by Dr. Petersen for pulmonary service, psychiatric service for history of recent behavioral changes, and cardiology service. Patient improved significantly during his hospital stay with antibiotics, nebulizer updraft treatments, bronchodilators, and steroids. Patient was felt stable for transfer to subacute rehab from all consultants with follow-up in the outpatient setting. Discharge diagnoses: 1. Left lower lobe pneumonia, present on admission, failed outpatient treatment. 2. Exacerbation of COPD. 3. Acute on chronic diastolic heart failure. 4. Anemia of chronic disease, chronic kidney disease and iron deficiency. 5. Chronic renal failure, stage III. 6. Dyslipidemia. Continue Lipitor. 7. Urinary incontinence. 8. Random elevated blood sugar, improved. 9. Left lower quadrant abdominal pain. Abdominal x-ray negative for obstruction. 10. Hypertensive urgency. 11. BPH. 12. Glaucoma. 13. History of gout. 14. History of constipation. 15. History of anxiety and depression. 16. History of recent insomnia and possible manic behavior. 17. Dyslipidemia. 18. History of pancreatitis. 19. Gait dysfunction. The above impression and plan have been discussed and directed by Dr. Banuelos. Iliana HUERTA acting as scribe for Dr. Banuelos. Pertinent Studies: Chest x-ray; EKG; abdomen x-ray; echocardiogram with Doppler Patient Condition at Discharge: Stable Plan - Discharge Summary New Discharge Prescriptions: Amoxic-Pot Clav 875-125Mg [Augmentin 875-125] 1 each PO Q12HR #14 tab QUEtiapine [SEROquel] 25 mg PO HS PRN #7 tab PRN Reason: Agitation predniSONE 0 mg PO DIRECTED #9 tab traZODone HCL [Desyrel] 100 mg PO HS #7 tab Discharge Medication List Brimonidine Tartrate/Timolol [Combigan 0.2%/0.5% Ophth Soln] 1 drop BOTH EYES Q12HR 10/08/15 [History] Finasteride [Proscar] 5 mg PO DAILY 10/08/15 [History] Tamsulosin [Flomax] 0.4 mg PO DAILY 10/08/15 [History] Travoprost [Travatan Z 0.004%] 1 drop BOTH EYES HS 10/08/15 [History] Vitamin B Complex 1 cap PO DAILY 10/08/15 [History] Albuterol Inhaler [Ventolin Hfa Inhaler] 1 puff INHALATION RT-Q4H PRN 10/09/15 [ History] Fluticasone/Salmeterol [Advair 250-50 Diskus] 2 puff INHALATION RT-BID 03/05/16 [History] Ferrous Sulfate [Iron (65 MG Elemental)] 325 mg PO DAILY 04/23/16 [History] Docusate [Colace] 100 mg PO BID PRN 05/26/16 [History] Dorzolamide HCl [Trusopt 2%] 1 drop BOTH EYES BID 05/26/16 [History] Omeprazole 20 mg PO DAILY PRN 05/26/16 [History] Potassium Chloride [K-Tab ER] 10 meq PO BID 05/26/16 [History] Simvastatin [Zocor] 20 mg PO HS 05/26/16 [History] [place] HCl [Isopto Carpine 4%] 1 drop BOTH EYES QID 10/27/16 [History] Amoxic-Pot Clav 875-125Mg [Augmentin 875-125] 1 each PO Q12HR #14 tab 11/03/16 [ Rx] Furosemide [Lasix] 40 mg PO DAILY tab 11/03/16 [Rx] INSULIN LISPRO (humaLOG) [humaLOG (formulary)] 0 unit SQ ACHS vial 11/03/16 [Rx ] Ipratropium-Albuterol Nebulize [Duoneb 0.5 mg-3 mg/3 ml Soln] 3 ml INHALATION RT -Q4H PRN #0 ampul.neb 11/03/16 [Rx] Lisinopril [Zestril] 20 mg PO DAILY tab 11/03/16 [Rx] QUEtiapine [SEROquel] 25 mg PO HS PRN #7 tab 11/03/16 [Rx] amLODIPine [Norvasc] 5 mg PO BID tab 11/03/16 [Rx] predniSONE 0 mg PO DIRECTED #9 tab 11/03/16 [Rx] traZODone HCL [Desyrel] 100 mg PO HS #7 tab 11/03/16 [Rx] Follow up Appointment(s)/Referral(s): [facility] [Provider Group] - 1 Week Maribell Petersen MD [STAFF PHYSICIAN] - 1 Week Medardo Banuelos DO [Primary Care Provider] - 1 Week Patient Instructions/Handouts: Pneumonia (DC) Activity/Diet/Wound Care/Special Instructions: Cardiac diet. Discharge Disposition: TRANSFER TO SNF/ECF
--- NOTE | 2016-11-03 15:13 | P.PN ---
Subjective Principal diagnosis: COPD exacerbation This is a very pleasant 86-year-old gentleman who follows with Dr. Banuelos as his primary care physician. He has a history of hyperlipidemia, hypertension, memory impairment, renal disease, anemia. He also has a history of chronic obstructive pulmonary disease and follows with our group for the same. He is maintained on Advair and Ventolin in the outpatient setting. He presented here yesterday to the emergency room with complaints of increasing shortness of breath, cough and congestion. His chest x-ray revealed some left basilar infiltrate/atelectasis. There is minimal leukocytosis at 13.7. He is maintaining good O2 saturations in the mid 90s on room air. Afebrile. Creatinine 1.83. He has been initiated on bronchodilators, Symbicort and prednisone. He is on antibiotics in the form of Zosyn. Presently, the patient is awake and alert in no acute distress. He does have a loose nonproductive cough. No chills or night sweats. The patient is seen again today 11/02/2016 in follow-up on the regular medical floor. He is currently sitting up in the chair at the bedside. He is awake and alert in no acute distress. He is maintaining O2 saturations in the 90s on room air. He denies any worsening shortness of breath, cough or congestion. The patient is seen again today 11/03/2016 in follow-up. He denies any worsening shortness of breath, cough or congestion. No wheezing. He is maintaining good O2 saturations in the low 90s on room air. He has been maintained on bronchodilators, Symbicort and Augmentin. He has been afebrile. He is somewhat agitated based on the fact that he has recommended ECF placement versus going home for his own safety. The patient does have some element of dementia and there are concerns regarding his living at home alone. Objective - Vital Signs Vital signs: Vital Signs Temp 97.6 F 11/03/16 07:00 Pulse 82 11/03/16 11:46 Resp 18 11/03/16 08:00 BP 167/95 11/03/16 07:00 Pulse Ox 92 L 11/03/16 07:00 Intake & Output 11/02/16 11/03/16 11/03/16 18:59 06:59 18:59 Output Total 400 675 650 Balance -400 -675 -650 Weight 78 kg 78 kg Output: Urine 400 675 650 Other: Voiding Method Urinal # Voids 4 1 # Bowel Movements 1 1 1 - Exam GENERAL EXAM: Alert, active, comfortable in no apparent distress. HEAD: Normocephalic. EYES: Normal reaction of pupils, equal size. NOSE: Clear with pink turbinates. THROAT: No erythema or exudates. NECK: No masses, no JVD. CHEST: No chest wall deformity. LUNGS: Equal air entry with faint end expiratory wheeze. Diminished.. CVS: S1 and S2 normal with no audible murmurs, regular rhythm. ABDOMEN: No hepatosplenomegaly, normal bowel sounds, no guarding or rigidity. SPINE: No scoliosis or deformity SKIN: No rashes CENTRAL NERVOUS SYSTEM: No focal deficits, tone is normal in all 4 extremities. Extremities: There is no peripheral edema. No clubbing. Peripheral pulses are intact. - Labs CBC & Chem 7: 11/03/16 08:20 11/03/16 08:20 Labs: Abnormal Lab Results - Last 24 Hours (Table) 11/02/16 11/02/16 11/03/16 Range/Units 17:06 21:12 06:57 WBC (3.8-10.6) k/uL RBC (4.30-5.90) m/uL Hgb (13.0-17.5) gm/dL Hct (39.0-53.0) % Neutrophils # (1.3-7.7) k/uL BUN (9-20) mg/dL Creatinine (0.66-1.25) mg/dL Glucose (74-99) mg/dL POC Glucose (mg/dL) 113 H 206 H 140 H (75-99) mg/dL 11/03/16 11/03/16 11/03/16 Range/Units 08:20 08:20 12:04 WBC 20.9 H (3.8-10.6) k/uL RBC 3.83 L (4.30-5.90) m/uL Hgb 12.5 L (13.0-17.5) gm/dL Hct 38.1 L (39.0-53.0) % Neutrophils # 18.5 H (1.3-7.7) k/uL BUN 43 H (9-20) mg/dL Creatinine 1.42 H (0.66-1.25) mg/dL Glucose 130 H (74-99) mg/dL POC Glucose (mg/dL) 146 H (75-99) mg/dL Microbiology - Last 24 Hours (Table) 10/27/16 15:00 Blood Culture - Final Blood No Growth after 144 hours Assessment and Plan Plan: Impression: #1 Acute exacerbation of chronic obstructive pulmonary disease secondary to left lower lobe pneumonia. #2 Acute left lower lobe pneumonia. #3 Acute exacerbation of chronic diastolic congestive heart failure. #4 Anemia of chronic disease. #5 Acute on chronic kidney disease, current creatinine 1.42. #6 Hypertension. #7 Hyperlipidemia. #8 Benign prosthetic hypertrophy. #9 Gastroesophageal reflux disease. #10 Memory impairment. Plan: The patient was seen and evaluated by Dr. Petersen. He is cleared for discharge to the extended care facility from the pulmonary standpoint. We'll continue antibiotics in the form of Augmentin to complete his course. 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 He will follow-up in our office in 1-2 weeks' time. We can repeat a chest x-ray then.
== END 2016-11-03 15:21 | DRG 190 ==
LOC: EC 11:12 → 4MS4W 14:47
PROVIDERS: ADMIT Family Medicine; ATTEND Family Medicine
DX: J44.0 Chronic obstructive pulmonary disease with (acute) lower respiratory infection (principal); J18.9 Pneumonia, unspecified organism; J96.02 Acute respiratory failure with hypercapnia; I50.33 Acute on chronic diastolic (congestive) heart failure; N17.9 Acute kidney failure, unspecified; N18.3 Chronic kidney disease, stage 3 (moderate); I13.0 Hypertensive heart and chronic kidney disease with heart failure and stage 1 through stage 4 chronic kidney disease, or unspecified chronic kidney disease; F05 Delirium due to known physiological condition; E86.1 Hypovolemia; D63.1 Anemia in chronic kidney disease; I45.10 Unspecified right bundle-branch block; J44.1 Chronic obstructive pulmonary disease with (acute) exacerbation; F32.9 Major depressive disorder, single episode, unspecified; T38.0X5A Adverse effect of glucocorticoids and synthetic analogues, initial encounter; T46.4X5A Adverse effect of angiotensin-converting-enzyme inhibitors, initial encounter; F41.9 Anxiety disorder, unspecified; G47.00 Insomnia, unspecified; I16.0 Hypertensive urgency; N39.498 Other specified urinary incontinence; R14.0 Abdominal distension (gaseous); R20.0 Anesthesia of skin; R73.09 Other abnormal glucose; R10.32 Left lower quadrant pain; D50.9 Iron deficiency anemia, unspecified; N40.1 Benign prostatic hyperplasia with lower urinary tract symptoms; E78.5 Hyperlipidemia, unspecified; H40.9 Unspecified glaucoma; M10.9 Gout, unspecified; K59.00 Constipation, unspecified; L91.0 Hypertrophic scar; G89.4 Chronic pain syndrome; R26.9 Unspecified abnormalities of gait and mobility; K21.9 Gastro-esophageal reflux disease without esophagitis; R30.0 Dysuria; M54.5 Low back pain; M25.551 Pain in right hip; Z88.5 Allergy status to narcotic agent; Z88.8 Allergy status to other drugs, medicaments and biological substances; Z96.641 Presence of right artificial hip joint; Z96.652 Presence of left artificial knee joint; Z87.19 Personal history of other diseases of the digestive system; Z79.51 Long term (current) use of inhaled steroids; Z79.52 Long term (current) use of systemic steroids; Z79.899 Other long term (current) drug therapy
CPT/HCPCS: 36415; 71010; 71020; 74020; 80048; 80053; 80306; 80320; 81001; 82150; 82550; 82553; 83036; 83690; 83735; 83880; 84484; 85025; 85610; 85730; 87040; 87070; 87086; 87205; 87324; 87502; 93005; 93306; 94640; 94760; 96361; 96365; 96366; 99285

== ENCOUNTER 2017-03-10 12:45 | Emergency (ER) | payer MEDICARE ==
[2017-03-10 13:22] VITALS: RESP 18
--- NOTE | 2017-03-10 15:24 | XR ---
EXAMINATION TYPE: XR Hip Complete RT DATE OF EXAM: 03/10/2017 CLINICAL HISTORY: pain TECHNIQUE: AP and frogleg views of the right hip are obtained. COMPARISON: April 07, 2012 FINDINGS: There is no acute fracture/dislocation evident. 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 The overlying soft tissue appears unremarkable. IMPRESSION: 1. There is no acute fracture or dislocation. ICD 10 NO FRACTURE, INITIAL EVALUATION
--- NOTE | 2017-03-10 16:22 | ED ---
Lower Extremity Injury HPI - General Chief Complaint: Extremity Injury, Lower Stated Complaint: Hip Pain Time Seen by Provider: 03/10/17 14:55 Source: patient Mode of arrival: wheelchair Limitations: physical limitation - History of Present Illness Initial Comments: Patient is an 86-year-old male with medical history significant for osteoarthritis, total right hip replacement, and left total right knee replacement. Patient presents to the emergency department with complaints of right hip pain increasing in intensity over last 2 weeks. Patient rates pain 0 out of 10 at rest but 8 out out of 10 with ambulation. Patient states he had a fall approximately 1 month ago in an extended care facility and states he has intermittent right hip pain but never as severe as this. No history of fevers, chills, nausea, vomiting, shortness of breath, chest pain, or abdominal pain. Patient denies numbness or tingling. Caregiver is at bedside and states patient was able to ambulate a little this morning but was brought in in a wheelchair. Patient lives by himself but does have a caregiver coming over to his house a few times a day. Patient is on prescription opiates for chronic back pain. - Related Data Home Medications Medication Instructions Recorded Confirmed Brimonidine Tartrate/Timolol 1 drop BOTH EYES Q12HR 10/08/15 10/27/16 [Combigan 0.2%/0.5% Ophth Soln] Finasteride [Proscar] 5 mg PO DAILY 10/08/15 10/27/16 Tamsulosin [Flomax] 0.4 mg PO DAILY 10/08/15 10/27/16 Travoprost [Travatan Z 0.004%] 1 drop BOTH EYES HS 10/08/15 10/27/16 Vitamin B Complex 1 cap PO DAILY 10/08/15 10/27/16 Albuterol Inhaler [Ventolin Hfa 1 puff INHALATION RT-Q4H PRN 10/09/15 10/27/16 Inhaler] Fluticasone/Salmeterol [Advair 2 puff INHALATION RT-BID 03/05/16 10/27/16 250-50 Diskus] Ferrous Sulfate [Iron (65 MG 325 mg PO DAILY 04/23/16 10/27/16 Elemental)] Docusate [Colace] 100 mg PO BID PRN 05/26/16 10/27/16 Dorzolamide HCl [Trusopt 2%] 1 drop BOTH EYES BID 05/26/16 10/27/16 Omeprazole 20 mg PO DAILY PRN 05/26/16 10/27/16 Potassium Chloride [K-Tab ER] 10 meq PO BID 05/26/16 10/27/16 Simvastatin [Zocor] 20 mg PO HS 05/26/16 10/27/16 Pilocarpine HCl [Isopto Carpine 4%] 1 drop BOTH EYES QID 10/27/16 10/27/16 Previous Rx's Medication Instructions Recorded Amoxic-Pot Clav 875-125Mg 1 each PO Q12HR #14 tab 11/03/16 [Augmentin 875-125] Furosemide [Lasix] 40 mg PO DAILY tab 11/03/16 INSULIN LISPRO (humaLOG) [humaLOG 0 unit SQ ACHS vial 11/03/16 (formulary)] Ipratropium-Albuterol Nebulize 3 ml INHALATION RT-Q4H PRN #0 11/03/16 [Duoneb 0.5 mg-3 mg/3 ml Soln] ampul.neb Lisinopril [Zestril] 20 mg PO DAILY tab 11/03/16 QUEtiapine [SEROquel] 25 mg PO HS PRN #7 tab 11/03/16 amLODIPine [Norvasc] 5 mg PO BID tab 11/03/16 predniSONE 0 mg PO DIRECTED #9 tab 11/03/16 traZODone HCL [Desyrel] 100 mg PO HS #7 tab 11/03/16 Allergies Allergy/AdvReac Type Severity Reaction Status Date / Time hydrocodone bitartrate AdvReac DELERIUM Verified 03/10/17 13:22 [From Mangum] methylprednisolone sodium AdvReac delerium Verified 03/10/17 13:22 succinate [From Solu-Medrol] Review of Systems ROS Statement: Those systems with pertinent positive or pertinent negative responses have been documented in the HPI. ROS Other: All systems not noted in ROS Statement are negative. Past Medical History Past Medical History: Blood Disorder, COPD, Eye Disorder, Hyperlipidemia, Hypertension, Memory Impairment, Renal Disease, Skin Disorder, Vascular Disorder Additional Past Medical History / Comment(s): GLAUCOMA. KELOIDS. ANEMIA. Kidney disease but does not require dialysis. Black stools. History of Any Multi-Drug Resistant Organisms: None Reported Past Surgical History: Joint Replacement, Orthopedic Surgery Additional Past Surgical History / Comment(s): TOTAL RT HIP, LT KNEE. Past Anesthesia/Blood Transfusion Reactions: No Reported Reaction Past Psychological History: Anxiety, Depression Smoking Status: Never smoker Past Alcohol Use History: None Reported Past Drug Use History: None Reported - Past Family History Mother Family Medical History: No Reported History Father Additional Family Medical History / Comment(s): Keloids General Exam Limitations: physical limitation General appearance: alert, in no apparent distress Head exam: Present: atraumatic, normocephalic, normal inspection Eye exam: Present: normal appearance, PERRL. Absent: scleral icterus, conjunctival injection, periorbital swelling, periorbital tenderness ENT exam: Present: normal exam, mucous membranes moist, normal external ear exam Neck exam: Present: normal inspection, full ROM. Absent: tenderness, lymphadenopathy Respiratory exam: Absent: normal lung sounds bilaterally (Diminished lung sounds bilaterally), respiratory distress, wheezes, rales Cardiovascular Exam: Present: regular rate, normal rhythm, normal heart sounds GI/Abdominal exam: Present: soft, normal bowel sounds. Absent: tenderness Left Hip exam: Present: normal inspection, full ROM, external rotation, internal rotation, pelvic stability. Absent: tenderness, swelling, ecchymosis, shortening Upper Leg exam: Present: normal inspection, full ROM. Absent: tenderness, swelling Knee exam: Present: normal inspection, full ROM, full knee extension. Absent: tenderness, swelling Lower Leg exam: Present: normal inspection, full ROM. Absent: tenderness, swelling Ankle exam: Present: normal inspection, full ROM. Absent: tenderness, swelling Foot/Toe exam: Present: normal inspection, full ROM. Absent: tenderness, swelling Neurovascular tendon exam: Present: no vascular compromise. Absent: abnormal cap refill, motor deficit, sensory deficit, tendon deficit, extremity cold to touch, pallor, foot drop, significant pain with passive ROM of distal joint Right Hip exam: Present: tenderness (Tenderness to lateral and posterior), external rotation (Painful), internal rotation (Painful). Absent: swelling, ecchymosis, deformity Upper Leg exam: Present: normal inspection. Absent: tenderness, swelling Knee exam: Present: normal inspection, full ROM. Absent: tenderness, swelling Lower Leg exam: Present: normal inspection, full ROM. Absent: tenderness, swelling Ankle exam: Present: normal inspection, full ROM. Absent: tenderness, swelling Foot/Toe exam: Present: normal inspection, full ROM. Absent: abrasion, laceration Gait: antalgic Back exam: Present: normal inspection. Absent: tenderness, paraspinal tenderness, vertebral tenderness, rash noted Neurological exam: Present: alert, oriented X3. Absent: motor sensory deficit ( No focal deficits noted) Psychiatric exam: Present: normal affect, normal mood Skin exam: Present: warm, dry, intact, normal color Course Vital Signs 03/10/17 03/10/17 03/10/17 13:20 18:16 18:18 Temperature 97.3 F L 97.8 F Pulse Rate 78 80 Respiratory 18 18 Rate Blood Pressure 144/69 140/72 O2 Sat by Pulse 97 98 Oximetry Medical Decision Making - Medical Decision Making Right hip pain. X-ray and computed tomography scan of right hip without evidence of acute fracture or dislocation. Did discuss possible admission with patient and caregiver for possible further imaging. At this time patient and caregiver declines and states they will follow-up with orthopedic service. Discharge instructions and return parameters reviewed. - Radiology Data Radiology results: report reviewed X-ray right hip: No acute fracture or dislocation. 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 Overlying soft tissue appears unremarkable. CT right hip without contrast: Right sacroiliac joint is intact. Right hip prosthesis appear in anatomic position. No sign of loosening. Acetabulum appears intact. No focal bone destruction. Metal artifact from prosthesis. As read by Dr. Tanner. Disposition Clinical Impression: Right hip pain Disposition: HOME SELF-CARE Condition: Good Instructions: Hip Pain (ED) Additional Instructions: Continue Tylenol and Ultram for pain. May use ice or heat for comfort. Follow- up with orthopedic service and Dr. Banuelos as directed. Please return to the emergency department with any new or worsening symptoms. Referrals: Medardo Banuelos DO [Primary Care Provider] - 1-2 days [facility] [Provider Group] - 1-2 days Time of Disposition: 18:05
--- NOTE | 2017-03-10 17:37 | CT ---
EXAMINATION TYPE: CT hip RT wo con DATE OF EXAM: 03/10/2017 COMPARISON: NONE HISTORY: right hip pain worsening over past 2 weeks, no recent injury CT DLP: 470.3 mGycm Automated exposure control for dose reduction was used. FINDINGS: Multiple axial sections were obtained from the mid ileum to the mid shaft of the femur with no contra st. The right sacroiliac joint is intact. There is a right hip prosthesis that appears in anatomic positi on. I see no sign of loosening. Acetabulum appears intact. I see no focal bone destruction. There is metal artifact from the prosthesis. IMPRESSION: RIGHT HIP PROSTHESIS. NO FRACTURE SEEN.
[2017-03-10 18:17] VITALS: TEMP 97.8
[2017-03-10 18:19] VITALS: BP 140/72; PULSE 80
== END 2017-03-10 18:16 | disposition home or self-care (01) ==
LOC: EEVIPCON 12:45 → EC 12:45
DX: M25.551 Pain in right hip (principal); J44.9 Chronic obstructive pulmonary disease, unspecified; E78.5 Hyperlipidemia, unspecified; D64.9 Anemia, unspecified; Z96.641 Presence of right artificial hip joint; Z96.651 Presence of right artificial knee joint; Z88.5 Allergy status to narcotic agent; Z88.8 Allergy status to other drugs, medicaments and biological substances; Z79.51 Long term (current) use of inhaled steroids; Z79.899 Other long term (current) drug therapy
CPT/HCPCS: 73502; 99284